=== PATIENT | female | born 1935 | race Caucasian/White ===

== ENCOUNTER 2019-02-20 12:26 | Inpatient (IN) | payer MEDICARE, BC ==
[2019-02-20] MEDS ORDERED: Zofran 4 MG/2 ML VIAL IV PRN ×2 (13:22→17:29)
[2019-02-20] MEDS ORDERED: MORPHINE SULFATE 2 MG INJ IV PRN ×2 (13:23→17:28)
[2019-02-20] MEDS ORDERED: Sodium Chloride 0.9% 1000 ML 1,000 ML IV SCH (13:30)
[2019-02-20] MEDS ORDERED: Lactated Ringers 1,000 ML IV ONE ×2 (13:47→13:56)
[2019-02-20] MEDS ORDERED: Sensorcaine 0.25% 10 ML ONE (13:56)
[2019-02-20] MEDS ORDERED: MEFOXIN 2 GM PREMIX** 2 GM/50 ML ML IV SCH (14:00)
[2019-02-20] MEDS: Zosyn 3.375GM/100 Ml D5W 3.375 GM/100 ML IVPB IV SCH ×2 (14:07→22:40)
[2019-02-20] MEDS ORDERED: Zemuron 100 MG/10 ML ONE (14:11)
[2019-02-20] MEDS ORDERED: DIPRIVAN 200 MG/20 ML IV ONE (14:11)
[2019-02-20] MEDS ORDERED: SUBLIMAZE 100 MCG/2 ML ONE ×2 (14:11→16:33)
[2019-02-20] MEDS ORDERED: Quelicin Fliptop 200 MG/10 ML ONE (14:11)
[2019-02-20] MEDS ORDERED: Lactated Ringers 1,000 ML IV SCH (14:30)
[2019-02-20] MEDS ORDERED: TORAdol 30 mg Injection ONE (15:52)
[2019-02-20] MEDS ORDERED: BRIDION 200MG/2ML IV ONE (15:52)
[2019-02-20] MEDS ORDERED: Zofran 4 MG/2 ML VIAL ONE (15:52)
[2019-02-20] MEDS ORDERED: Decadron 4 MG INJ ONE (15:52)
[2019-02-20] MEDS ORDERED: APRESOLINE 20 MG/ML INJ ONE (16:16)
--- NOTE | 2019-02-20 16:37 | CONS ---
CONSULT DATE: 02/20/[address] Florence's call day. HISTORY OF PRESENT ILLNESS: Patient is an 83 y/o female who has had a colonoscopy in the past 2-3 years. Didn't have any polyps at that time. She has had right lower quadrant pain since Saturday. She was sent in. they said she had acute appendicitis. That information was relayed to our office. It was felt she needed appendectomy given her persistent pain and CT findings. They didn't mention at the time, she also has some sort of cystic area/enhanced prabhakar in the left upper quadrant unsure of whether there is infection or not vs malignancy or other etiology. Lovilia would benefit from other work-up down the road. PAST MEDICAL HISTORY: Has had vitamin D deficiency. She has some neuropathy and osteoporosis in the past. Includes hypertension and arthritis as well. Has had some chronic cough in the past. PAST SURGICAL HISTORY: She has had tonsillectomy in the past, left breast lumpectomy. She denied any prior abdominal surgery. HOME MEDICATIONS: Alprazolam, calcium, Flarex eye drops, fluticasone, loratadine, probiotic, vitamin C, vitamin D3. FAMILY HISTORY: Negative for malignancy with regards to this. SOCIAL HISTORY: No smoking. No alcohol abuse. REVIEW OF SYSTEMS: Has had some chronic cough in the past Review of System hager, otherwise no chest pain or palpitations. Other systems negative or noncontributory other than above and per preadmission questionnaire. 14 systems reviewed pertinent for as noted above. PHYSICAL EXAMINATION: GENERAL: No acute distress. HEENT: Sclerae nonicteric. NECK: No JVD. CHEST: Equal excursion. Nonlabored breathing. CVS: Regular rate and rhythm. ABDOMEN: Soft. Some tenderness in the right lower quadrant with a little bit of guarding and just slight fullness in right lower quadrant, but she is nontender there. EXTREMITIES: No edema. NEURO: Alert, moving extremities grossly symmetrically. IMPRESSION: ACUTE RIGHT LOWER QUADRANT PAIN. CT SUSPICIOUS OF ACUTE APPENDICITIS. THIS IS WHERE SHE IS HAVING HER SYMPTOMS. Feel she would benefit from diagnostic laparoscopy, laparoscopy appendectomy, possible open. She additionally has this question of cystic area in the left upper quadrant. She is not having symptoms in this area. Whether this is related to a diverticulitis, a colitis, localized perforation, or some other unusual malignancy is unclear. Likely, she will need other work-up in the future probably starting with a colonoscopy for further evaluation, but as she is definitely having right lower quadrant pain over her abnormal appendix, there is a concern for the risk of perforating appendicitis. Over time feel more better to give additional procedures is less than the risk of worsening infection. Therefore, will proceed with diagnostic laparoscopy, laparoscopy appendectomy, possible open. Will look up at the left upper quadrant to see if there are any signs of malignancy to biopsy, but do not feel she warrants any open procedure with regards to that at this point. She and the family understand. Understand that she will likely need some other work-up, but need to get the appendix out of there at this time. Thank you for the consult.
[2019-02-20] MEDS ORDERED: NORCO 5/325 MG PO PRN (17:28)
[2019-02-20] MEDS: D5W/0.45NS W/ 20mEq KCl 1000 ML 1,000 ML IV SCH (18:03)
[2019-02-20] MEDS: XANAX 1 MG PO SCH (22:40)
[2019-02-21] MEDS: Zosyn 3.375GM/100 Ml D5W 3.375 GM/100 ML IVPB IV SCH ×5 (01:14→22:49)
[2019-02-21 06:22] LABS: Hematocrit 35.7 % (35-47); Hemoglobin 11.3 gm/dl (12.0-16.0); Mean Cell Volume 93.9 fl (78-100); Mean Corpuscular Hemoglobin 29.7 pg (26-32); Mean Corpuscular Hgb Concent. 31.7 g/dl (32-36); Mean Platelet Volume 10.9 fl (6-9.5); Platelet Count 247 K/mm3 (150-450); Red Cell Distribution Width 14.1 % (11.5-14.0); White Blood Count 18.1 K/mm3 (4.0-10.5)
[2019-02-21 06:46] LABS: ANION GAP 8.7 MEQ/L (5-15); BLOOD UREA NITROGEN 15 mg/dL (7-17); CHLORIDE 108 mmol/L (98-107); Calcium 8.8 mg/dL (8.4-10.2); Carbon Dioxide 24 mmol/L (22-30); Creatinine 1 0.67 mg/dL (0.52-1.04); Glucose 136 mg/dL (74-106); Potassium 4.2 mmol/L (3.5-5.1); SODIUM 137 mmol/L (137-145)
[2019-02-21] MEDS: CLARITIN 10 MG PO SCH (09:23)
[2019-02-21] MEDS: Flonase NASAL NS SCH (09:23)
[2019-02-21] MEDS: PRED-FORTE 1% OPHTHALMIC OP SCH (09:24)
[2019-02-21] MEDS: ENOXAPARIN SODIUM SQ SCH (09:24)
[2019-02-21] MEDS ORDERED: [UNRECOGNIZED DRUG - REMARK] NS SCH (10:00)
[2019-02-21] MEDS: TYLENOL 325 MG PO PRN (13:32)
--- NOTE | 2019-02-21 15:07 | PCM.HP ---
History of Present Illness - Chief Complaint Chief Complaint: Acute Appendicitis, Left Upper Quad Mass/Cyst History of Present Illness: is a 83 year old female seen this am following direct admission from the office for acute appendicitis. Patient presented to the clinic with a 1 -2 day hx of abdominal pain, fever and nausea. Patient was initially evaluated in clinic and was sent for a stat CT scan. On CT scan patient was noted to have an acute appendicitis and L sided upper quadrant mass or necrosis of unknown etiology. Patient was made NPO and went directly to surgery. Please refer to surgeon's procedure note for details. Patient reports that she is doing well this am. She reports she has some mild abdominal pain at incision site. Patient reports she had no appetite yesterday but would like to eat this am. No other reported concerns. - Review of Systems Constitutional: Fever (on wed evening but has since resolved) Eyes: No Vision Changes, No Double Vision Respiratory: No Cough, No Short Of Breath Cardiac: No Chest Pain, No Edema Abdominal/Gastrointestinal: Nausea, Diarrhea, No Vomiting, No Constipation ( Mild diarrhea on sat) Genitourinary Symptoms: No Dysuria Musculoskeletal: No Symptoms Neurological: No Symptoms Hematologic/Lymphatic: No Anemia Medications & Allergies Home Medications: Home Medication List Alprazolam 1 mg [Xanax 1 mg] 1 mg PO HS 02/20/19 [History Confirmed ] Amoxicillin 500 mg Cap [Amoxil 500 mg] 500 mg PO BID 02/20/19 [History Confirmed 02/20/19] Fluticasone Propionate [24 Hour Allergy] 1 spray NS DAILY 02/20/19 [History Confirmed 02/20/19] Loratadine 10 mg [Claritin 10 mg] 10 mg PO DAILY 02/20/19 [History Confirmed 02/20/19] Prednisolone Acetate OPHTH [Pred-Forte 1% Ophthalmic] 1 drop OP DAILY 12/03 [History Confirmed 02/20/19] Allergies/Adverse Reactions: Allergies Allergy/AdvReac Type Severity Reaction Status Date / Time No Known Drug Allergies Allergy Unverified 02/20/19 14:25 - Past Medical History Past Medical History: No Neurological History: No Pertinent History ENT History: No Pertinent History Cardiac History: No Pertinent History Respiratory History: No Pertinent History Endocrine Medical History: No Pertinent History Musculoskelatal History: No Pertinent History GI Medical History: No Pertinent History History: No Pertinent History Pyscho-Social History: No Pertinent History Reproductive Disorders: No Pertinent History - Female History Are you now?: No - Past Surgical History Past Surgical History: Yes Cardiac History: No Pertinent History Respiratory Surgery: No Pertinent History GI Surgical History: No Pertinent History Genitourinary Surgical Hx: No Pertinent History Musculskeletal Surgical Hx: No Pertinent History Female Surgical History: No Pertinent History Other Surgical History: cataracts removed bilateral eyes, cornea transplan bilateral eyes. right lumpectomy to right breast - Social History Smoking Status: Never smoker Alcohol: None Drug Use: none - Physical Exam Vital Signs: Vital Signs - 24 hr Temp Pulse Resp BP Pulse Ox 02/21/19 13:00 98.1 F 68 20 157/70 96 02/21/19 08:50 93 L 02/21/19 08:44 98.1 F 66 20 125/60 97 02/21/19 07:47 18 02/21/19 05:00 97.7 F 65 18 164/69 94 L 02/21/19 00:00 98.6 F 73 18 143/67 94 L 02/20/19 20:35 96 02/20/19 19:30 98.1 F 80 19 140/70 95 02/20/19 18:32 89 16 165/71 96 02/20/19 18:30 98.3 F 85 18 143/62 94 L 02/20/19 17:30 84 16 153/67 95 02/20/19 17:15 86 16 155/66 95 02/20/19 17:00 97.8 F 16 L 16 138/66 88 L Oxygen-Last 24 hours O2 Percentage 2 Liters = 28% O2 Percentage 2 Liters = 28% O2 Percentage 2 Liters = 28% O2 Percentage 2 Liters = 28% O2 Percentage 2 Liters = 28% O2 Percentage 2 Liters = 28% O2 Percentage 2 Liters = 28% General Appearance: no apparent distress, other (Patient looks mildly ill) Neurologic Exam: alert, oriented x 3, cooperative, normal mood/affect Eye Exam: eyes nml inspection Ears, Nose, Throat Exam: moist mucous membranes Neck Exam: normal inspection Respiratory Exam: normal breath sounds, lungs clear Cardiovascular Exam: regular rate/rhythm Gastrointestinal/Abdomen Exam: soft, normal bowel sounds, tenderness (Incision site had mild tenderness with palpation. NOBLE drain present with 5 ml of serous blood tinged drainage. Dressing clean dry and intact) Extremity Exam: normal inspection Skin Exam: warm, dry Wound Assessment: Skin/Wound Assessment Wound/Incision Assessment Start: 02/20/19 12: 50 Text: Status: Active Freq: Q6H Protocol: Document 02/21/19 12:00 CATHLEEN (Rec: 02/21/19 12:09 CATHLEEN [id number]) Wound/Incision Assessment Anterior Abdomen Wound Assessment Shift Assessment Wound Type Puncture Wound Stage Non Pressure Wound Dressing Status Changed Drainage Amount Moderate Drainage Description Serosanguineous Drainage Odor None/Absent General Appearance Well Approximated Asymptomatic Surrounding Tissue [place] Primary Dressing Drain sponges Comment 3 laproscopic incisions and NOBLE site. Small amount of drainage noted on NOBLE dressing, drainage circled. Laproscopic incisions appear to have skin glue, all CDI. Results - Labs Lab/Micro Results: Lab Results-Last 24 Hours 02/21/19 02/21/19 Range/Units 06:00 06:00 WBC 18.1 H (4.0-10.5) K/mm3 RBC 3.80 L (4.1-5.4) M/mm3 Hgb 11.3 L (12.0-16.0) gm/dl Hct 35.7 (35-47) % MCV 93.9 (78-100) fl MCH 29.7 (26-32) pg MCHC 31.7 L (32-36) g/dl RDW 14.1 H (11.5-14.0) % Plt Count 247 (150-450) K/mm3 MPV 10.9 H (6-9.5) fl Sodium 137 (137-145) mmol/L Potassium 4.2 (3.5-5.1) mmol/L Chloride 108 H (98-107) mmol/L Carbon Dioxide 24 (22-30) mmol/L Anion Gap 8.7 (5-15) MEQ/L BUN 15 (7-17) mg/dL Creatinine 0.67 (0.52-1.04) mg/dL Estimated GFR > 60.0 ML/MIN Glucose 136 H (74-106) mg/dL Calcium 8.8 (8.4-10.2) mg/dL - Other Procedures and Tests Respiratory Therapy 02/20/19 21:26 Oxygen NASAL CANNULA 2 lpm Assessment/Plan (1) Acute appendicitis Current Visit: Yes Status: Acute Assessment & Plan: Patient is s/p day one appendectomy. She is tolerating PO intake. She is afebrile. Patient did have leukocytosis. She has mild abdominal pain at incision site with minimal drainage in NOBLE drain. Will follow up on Surgery recs for discharge plan. Code(s): K35.80 - UNSPECIFIED ACUTE APPENDICITIS (2) Hypertension Current Visit: Yes Status: Acute Assessment & Plan: Patient had some elevated BPs. Could be related to pain. Will continue to monitor and elevated bp persists will need to start patient on HTN medication. Code(s): I10 - ESSENTIAL (PRIMARY) HYPERTENSION
[2019-02-21] MEDS: D5W/0.45NS W/ 20mEq KCl 1000 ML 1,000 ML IV SCH ×2 (16:56→16:57)
[2019-02-21] MEDS: XANAX 1 MG PO SCH (22:49)
[2019-02-22 06:09] LABS: BASOPHIL % 0.2 % (0.0-0.4); Basophil (Absolute #) 0.03 (0-0.4); Eosinophil % 3.8 % (0.00-5.0); Eosinophil (Absolute #) 0.47 (0-0.5); Granulocyte Absolute (ANC) 9.07 (1.4-6.9); Granulocytes % 73.3 % (36.0-66.0); Hematocrit 35.2 % (35-47); Hemoglobin 10.9 gm/dl (12.0-16.0); Lymphocyte (Absolute #) 1.84 (1.0-4.6); Lymphocytes % 14.9 % (24.0-44.0); Mean Cell Volume 94.6 fl (78-100); Mean Corpuscular Hemoglobin 29.3 pg (26-32); Mean Platelet Volume 11.2 fl (6-9.5); Monocyte (Absolute #) 0.96 (0.0-1.3); Monocytes % 7.8 % (0.0-12.0); Platelet Count 280 K/mm3 (150-450); Red Blood Count 3.72 M/mm3 (4.1-5.4); Red Cell Distribution Width 14.3 % (11.5-14.0); White Blood Count 12.4 K/mm3 (4.0-10.5)
[2019-02-22] MEDS: Zosyn 3.375GM/100 Ml D5W 3.375 GM/100 ML IVPB IV SCH ×3 (07:26→14:26)
[2019-02-22] MEDS: TYLENOL 325 MG PO PRN ×2 (07:26→11:59)
[2019-02-22] MEDS: D5W/0.45NS W/ 20mEq KCl 1000 ML 1,000 ML IV SCH (07:27)
[2019-02-22] MEDS: Flonase NASAL NS SCH (09:34)
[2019-02-22] MEDS: PRED-FORTE 1% OPHTHALMIC OP SCH (09:37)
[2019-02-22] MEDS: ENOXAPARIN SODIUM SQ SCH (09:37)
[2019-02-22] MEDS: CLARITIN 10 MG PO SCH (09:37)
[2019-02-22 12:38] VITALS: PULSE 75; O2SAT 92
[2019-02-22 15:24] LABS: Hematocrit 34.8 % (35-47); Hemoglobin 10.8 gm/dl (12.0-16.0); Mean Cell Volume 94.6 fl (78-100); Mean Corpuscular Hemoglobin 29.3 pg (26-32); Platelet Count 292 K/mm3 (150-450); Red Blood Count 3.68 M/mm3 (4.1-5.4); Red Cell Distribution Width 14.1 % (11.5-14.0); White Blood Count 11.2 K/mm3 (4.0-10.5)
--- NOTE | 2019-02-22 15:52 | PCM.DS ---
Discharge Summary Date of Admission: 02/20/19 12:34 Date of Discharge: 02/22/2019 Admitting Physician: FRANTZ SPENCER Consults: Consults on Case 02/20/19 12:34 Consult Surgery ROUTINE Primary Care Provider: HEVER CRUZ Allergies Allergies No Known Drug Allergies Allergy (Unverified 02/20/19 14:25) Hospital Summary - Hospital Course Hospital Course: is a 83 year old female that was a direct admission from the office for acute appendicitis. Patient presented to the clinic with a 1-2 day hx of abdominal pain, fever and nausea. Patient was initially evaluated in clinic and was sent for a stat CT scan. On CT scan patient was noted to have an acute appendicitis and L sided upper quadrant mass or necrosis of unknown etiology. Patient was made NPO and went directly to surgery. Please refer to surgeon's procedure note for details. Patient tolerated procedure well. She advanced to a regular diet. Patient's WBC has been trending down. She has been afebrile and has had stable VS. Patient would like to go home. She was evaluated by surgery who recommended two doses of Zosyn repeat CBC and that patient's NOBLE drain could be removed. - Vitals & Intake/Output Vital Signs: Vital Signs Temperature 98.6 F 02/22/19 12:37 Pulse Rate 75 02/22/19 12:37 Respiratory Rate 18 02/22/19 13:00 Blood Pressure 186/79 02/22/19 12:37 O2 Sat by Pulse Oximetry 92 L 02/22/19 12:37 Oxygen-Last Documented O2 Percentage 2 Liters = 28% Intake & Output: Intake & Output 02/20/19 02/21/19 02/22/19 02/23/19 11:59 11:59 11:59 11:59 Intake Total 1774 1752 Output Total 1660 550 Balance 114 1202 Weight 65.3 kg 65.2 kg - Lab Result Diagrams: 02/22/19 15:05 02/21/19 06:00 Lab Results-Last 24 Hrs: Lab Results-Last 24 Hours 02/22/19 02/22/19 Range/Units 05:00 15:05 WBC 12.4 H 11.2 H (4.0-10.5) K/mm3 RBC 3.72 L 3.68 L (4.1-5.4) M/mm3 Hgb 10.9 L 10.8 L (12.0-16.0) gm/dl Hct 35.2 34.8 L (35-47) % MCV 94.6 94.6 (78-100) fl MCH 29.3 29.3 (26-32) pg MCHC 31.0 L 31.0 L (32-36) g/dl RDW 14.3 H 14.1 H (11.5-14.0) % Plt Count 280 292 (150-450) K/mm3 MPV 11.2 H 11.0 H (6-9.5) fl Gran % 73.3 H (36.0-66.0) % Eos # (Auto) 0.47 (0-0.5) Absolute Lymphs (auto) 1.84 (1.0-4.6) Absolute Monos (auto) 0.96 (0.0-1.3) Lymphocytes % 14.9 L (24.0-44.0) % Monocytes % 7.8 (0.0-12.0) % Eosinophils % 3.8 (0.00-5.0) % Basophils % 0.2 (0.0-0.4) % Absolute Granulocytes 9.07 H (1.4-6.9) Basophils # 0.03 (0-0.4) Micro Results-Entire Visit: Microbiology 02/20/19 15:51 Abscess Culture - Final Abdominal Aspirate Escherichia Coli - Procedures and Test Procedures and Tests throughout Hospitalization: Therapy Orders & Screens 02/20/19 21:26 Oxygen NASAL CANNULA 2 lpm Comment: Diagnosis: Acute Appendicitis, Left Upper Quad Mass/Cyst Discharge Exam General Appearance: no apparent distress Neurologic Exam: alert, oriented x 3, cooperative, normal mood/affect Eye Exam: eyes nml inspection Neck Exam: normal inspection Respiratory Exam: normal breath sounds, lungs clear Cardiovascular Exam: regular rate/rhythm, normal heart sounds Gastrointestinal/Abdomen Exam: soft, normal bowel sounds (Dressing clean dry intact. Minimal serous drainage in NOBLE drain. Steri strips intact. Mild tenderness with palpation. No rebounding or guarding.), No distention, No guarding, No rebound Extremity Exam: normal inspection, No pedal edema Skin Exam: normal color, warm, dry Wound Assessment: Skin/Wound Assessment Wound/Incision Assessment Start: 02/20/19 12: 50 Text: Status: Active Freq: Q6H Protocol: Document 02/22/19 12:00 CL (Rec: 02/22/19 15:32 CL [id number]) Wound/Incision Assessment Anterior Abdomen Wound Assessment Shift Assessment Wound Type Puncture Wound Stage Non Pressure Wound Dressing Status Changed Drainage Amount Minimal Drainage Description Serosanguineous Drainage Odor None/Absent General Appearance Well Approximated Surrounding Tissue [place] Primary Dressing Drain sponges Comment 3 laproscopic incisions and NOBLE site. Wound Photo Photo Taken No Final Diagnosis/Problem List - Final Discharge Diagnosis/Problem (1) Acute appendicitis Current Visit: Yes Status: Acute Assessment & Plan: Patient is s/p day 2 laproscopic appy. Patient is doing well. Discussed with Surgery and patient is cleared to go home and follow up with Dr Arzate. Patient will also need to make an appt to have scopes done to further evaluate an abnormal CT finding Code(s): K35.80 - UNSPECIFIED ACUTE APPENDICITIS (2) Hypertension Current Visit: Yes Status: Acute Assessment & Plan: This appears to be a new finding. Would like to have patient evaluated as outpatient for HTN and started on medications if still hypertensive. Code(s): I10 - ESSENTIAL (PRIMARY) HYPERTENSION - Discharge Disposition: Home, Self-Care Condition: Stable Prescriptions: New Amoxicillin/Potassium Clav [Augmentin 875-125 Tablet] 875 mg PO BID #10 tablet Hydrocodone/APAP 5-325 Tab^^^ [[place] 5-325 Tablet^^^] 1 each PO Q6H PRN #18 tablet MDD 6 PRN Reason: Pain Continue Prednisolone Acetate OPHTH [Pred-Forte 1% Ophthalmic] 1 drop OP DAILY Amoxicillin 500 mg Cap [Amoxil 500 mg] 500 mg PO BID Alprazolam 1 mg [Xanax 1 mg] 1 mg PO HS Loratadine 10 mg [Claritin 10 mg] 10 mg PO DAILY Fluticasone Propionate [24 Hour Allergy] 1 spray NS DAILY Instructions: [place]-Pers[place] Drain, Appendicitis, Adult (DC) Additional Instructions: Patient needs to call Dr Paz office to get scheduled for scopes Follow up with: RICA GALVAN [COURTESY STAFF] - 1 Week HEVER CRUZ [Primary Care Provider] - 1 Week
[2019-02-22 15:59] VITALS: BP 195/81
[2019-02-23 06:41] LABS: CA 125 50.7 U/mL (0.0-35.0)
[2019-02-23 06:42] LABS: CARCINOEMBRYONIC ANTIGEN 3.5 ng/mL (0.0-3.1)
--- NOTE | 2019-02-23 09:33 | OP ---
SURGERY DATE: 02/20/19 SURGERY TIME: 1501 PREOPERATIVE DIAGNOSIS: 1. ACUTE APPENDICITIS BY CT SCAN. 2. CYSTIC MASS BETWEEN THE PANCREAS AND THE STOMACH OF UNCLEAR ETIOLOGY. POSTOPERATIVE DIAGNOSIS: 1. ACUTE PERFORATED APPENDICITIS WITH ABSCESS LOWER ABDOMEN UNRELATED TO RETROGASTRIC CYSTIC MASS. PROCEDURE: 1. DIAGNOSTIC LAPAROSCOPY, LAPAROSCOPIC APPENDECTOMY WITH DRAINAGE OF ABSCESS AND PERFORATED APPENDIX. SURGEON: Dr. Davis Banks. ANESTHESIA: General. ESTIMATED BLOOD LOSS: Minimal. INDICATIONS: As noted above. Risks and benefits explained in detail, but not limited to. Including the fact that we would likely work-up this cystic mass on elective basis, but we need to remove the infected appendix. Consent had been obtained. DESCRIPTION OF PROCEDURE AND FINDINGS: The patient was taken to the OR. General anesthesia was induced. The abdomen prepped and draped in the usual sterile fashion. After official time-out, continued with planned procedure. Transverse incision made in supraumbilical area. Fascia grasped and pulled up. Veress needle inserted. Tested with saline. Pneumoperitoneum accomplished insufflating to an open pressure of 0-15. An 11 bladeless port and camera were inserted without difficulty followed by lower midline 5 mm port and an additional lower midline 5 mm port placed and 12 mm right mid abdomen port placed. The patient had fabrice purulence and abscess in her right lower quadrant and very thickened, dilated appendix. [place] she had at least some microperforation with abscess. It was felt she warranted appendectomy. This required placing an additional 5 mm port in the lower abdomen as she had quite the small bowel ileus with fluid-filled dilated loops of small bowel with no evidence of any point of obstruction. It was felt this was an ileus from her perforated appendicitis. It was felt she warranted appendectomy. An additional port was used with a gentle grasper holding the small bowel loop out of the way so that the appendiceal area could be visualized. The lateral peritoneal reflection was incised with the ligature device allowing the cecum and appendix to be mobilized upward. Again, the base was very thickened and required slow, careful dissection of the mesoappendix with the aid of the ligature device staying along the appendiceal border elevating it well away from the retroperitoneum up to the edge of the cecum. Again, whether there was a large stool ball fecalith in this area or some other mass, it was felt the appendix warranted taking it right on the cecum. This took quite some time mobilizing this, but once cleared, it was grasped with the [place] bowel grasper allowing the blue load in the stapler to be fired across the base. Sequential reload and the mesoappendix was fired with the bañuelos reload across the residual mesoappendix. Staple line appeared to be intact. No signs of any active bleeding or leakage. Again, avoided where it appeared that the ileum was entering the bowel, had avoided this area. Otherwise, the appendix appeared to at least have microperforation. It was placed in the Pleatman's sac, pulled free, and passed off. Fascial defect 12 mm was closed with the puncture closure device under direct vision of the camera and #1 Vicryl. Port was replaced. A copious amount of irrigation accomplished in the right lower quadrant down to the pelvis area irrigating clear, irrigating the infection from the inner bowel loops that had been plastered down in this area. It was felt she would benefit from NOBLE drain placed in this right lower quadrant out through the inferior 5 mm port site. Placed to bulb suction. Staple lines intact. No signs of any active bleeding or leakage. At this point, the patient was flattened so we could have better visualization of the upper abdomen. The liver appeared to be smooth. There was no gross evidence of any metastatic nodules on the surface. There were no signs of any peritoneal implants anywhere on the upper omentum or the fatty tissue between the stomach and the liver. The area where the cystic mass had been could be seen bulging in this area. However, there was no gross evidence of any tumor nodules outside this. It was felt given her perforated appendicitis that it did not warrant entering this cavity at this point. It was felt she needed an elective work-up and treatment of this cystic mass between the stomach and the tail of the pancreas. There was no superficial nodules to biopsy at this time. Right lower quadrant reinspected. Good hemostasis noted. No signs of any active bleeding. The drain was in good position. At this point, pneumoperitoneum decompressed. Wounds irrigated out. Skin incisions closed with 4-0 Vicryl. Steri-strips and sterile dressing applied. 0.25% Marcaine local had been injected previously. The patient was transferred to recovery in stable condition. There were no immediate complications. Findings discussed with the family out in the waiting area.
[2019-02-23 11:37] LABS: CA 19-9 <1.2 IU/mL (0.0-34.9)
== END 2019-02-22 16:40 | disposition home or self-care (01) | DRG 340 ==
LOC: MED SURG 12:34 → OBSVTOIN 12:34
PROVIDERS: ADMIT Family Medicine; ATTEND Internal Medicine
PROC: 0DTJ4ZZ Resection of Appendix, Percutaneous Endoscopic Approach (ICD-10-PCS; principal; 2019-02-20)
DX: K35.33 Acute appendicitis with perforation, localized peritonitis, and gangrene, with abscess (principal); R19.02 Left upper quadrant abdominal swelling, mass and lump; I10 Essential (primary) hypertension; Z79.899 Other long term (current) drug therapy
CPT/HCPCS: 36415; 74177; 80048; 81001; 82378; 85025; 85027; 86301; 86304; 87070; 87077; 87086; 87186; 94760; 99100; 99140; J0330; J0360; J0694; J1100; J1650; J1885; J2270; J2405; J2543; J2704; J3010; A9270-GY

== ENCOUNTER 2019-03-02 08:49 | Day surgery (SDC) | payer MEDICARE, BC ==
--- NOTE | 2019-03-02 08:40 | HP ---
DATE OF SURGERY: 03/02/2019 HISTORY OF PRESENT ILLNESS: This is an 83 year-old female in the hospital had acute appendicitis and left sided upper quadrant cystic mass of unclear etiology. Tumor markers were ordered. It was felt she needed EGD and colonoscopy for evaluation. PAST MEDICAL HISTORY: Hypertension. Osteoporosis. She had some polyps in the past. PAST SURGICAL HISTORY: Tonsillectomy. Left breast lumpectomy. Laparoscopy for perforated appendicitis recently. MEDICATIONS: Alprazolam, calcium, Pred-Forte eye drops, fluticasone, loratadine, probiotic, vitamin C, vitamin D3. She had been on Augmentin recently. ALLERGIES: NKDA. FAMILY HISTORY: Negative in regards to this problem. SOCIAL HISTORY: No smoking or alcohol abuse. REVIEW OF SYSTEMS: Fourteen systems reviewed per admission assessment. No chest pain or palpitations, no upper abdominal pain. She denied any prior history of pancreatitis, other systems negative or noncontributory as above and per preadmission questionnaire. PHYSICAL EXAMINATION: GENERAL: No acute distress. HEENT: Sclerae nonicteric. NECK: No JVD. CHEST: Equal excursion, nonlabored breathing. CVS: Regular rate and rhythm. ABDOMEN: Soft. No peritoneal signs. EXTREMITIES: No significant edema. NEURO: Alert, moving extremities symmetrically. No gross motor deficits noted. RECTAL: Deferred timed to endoscopy exam. IMPRESSION: History of epigastric symptoms and mass unclear etiology. I feel the patient will benefit from upper and lower endoscopy to evaluate upper or lower GI source. Risks and benefits explained in detail including but not limited to bleeding or infection, risk of bowel injury or perforation possibly requiring open procedure, risk of missed or nondiagnosis or incomplete exam possibly requiring barium swallow, other studies or procedures, general risk of anesthesia or sedation, risk of bowel prep but not limited to. She understands and agrees to the planned procedure and will proceed with EGD and colonoscopy as an outpatient.
[~2019-03-02 08:49] MED LIST: Lactated Ringers 1,000 ML IV SCH
[2019-03-02] MEDS ORDERED: DIPRIVAN 200 MG/20 ML IV ONE ×2 (10:36→10:53)
[2019-03-02 12:11] VITALS: O2SAT 96
[2019-03-02 12:28] VITALS: BP 159/86; PULSE 88
--- NOTE | 2019-03-03 09:25 | OP ---
SURGERY DATE/TIME: 03/02/2019 1039 PREOPERATIVE DIAGNOSES: 1) History of recent appendicitis. 2) History of unrelated retrogastric mass, need for upper and lower endoscopy for further evaluation. POSTOPERATIVE DIAGNOSES: 1) Small gastric polyps. 2) Gastritis. 3) Hyperplasia proximal stomach. 4) Ascending colon mass. 5) Diverticulosis. 6) Small internal and external hemorrhoids. 7) Small raised lesion versus early polyp descending colon and rectum. PROCEDURES: 1) EGD with cold biopsy of the small bowel to evaluate for celiac sprue. 2) Cold biopsy of the antrum to evaluate for Helicobacter pylori. 3) Cold biopsy removal of small gastric polyp. 4) Cold biopsy of mucosa overlying the extra-luminal retrogastric mass to evaluate mucosal lining. 5) Cold biopsy of hyperplasia of the proximal stomach mucosa. 6) Cold biopsy distal esophagus. 7) Colonoscopy to cecum, hot snare biopsy removal of large piece of large cecal mass. 8) Hot biopsy small raised lesion descending colon and rectum. SURGEON: Dr. Davis Banks. ANESTHESIA: MAC. ESTIMATED BLOOD LOSS: Minimal. INDICATIONS: As noted above. Risks and benefits explained in detail and not limited to and consent obtained. DESCRIPTION OF PROCEDURE AND FINDINGS: The patient is taken to the operating room. MAC anesthesia introduced. After official time out and no disagreement with planned procedure, a bite block positioned. Video gastroscope easily passed down the esophagus through the patent pylorus to the junction of the second and third portion of the duodenum. Duodenum and duodenal bulb no gross masses. Cold biopsy taken to evaluate for celiac sprue. Cold biopsy taken of the antrum to evaluate for gastritis and for Helicobacter pylori. Cold biopsy taken of mucosa, this appeared fairly unremarkable overlying what seemed to be retrogastric mass pushing in on the stomach. Again, this did not appear to be through the mucosa but cold biopsies were taken of the mucosa overlying this area. Cold biopsy also taken and removal of small polyp in the proximal stomach as well as there are some patchy areas with some whitish hyperplastic appearing areas where cold biopsy taken for further evaluation. Cold biopsy is also taken in the distal esophagus. Good hemostasis noted. There were no signs of any obvious mass or mucosal lesions in the esophagus. The scope is withdrawn. Attention turned to colonoscopy. Digital rectal exam did not reveal any rectal masses. She did have some small internal and external hemorrhoids. Video colonoscope inserted and passed up the slightly tortuous sigmoid, descending, transverse and ascending colon. With external pressure, the scope was able to be passed around the ascending colon to the cecum. The valve and cecum were well visualized. There was a moderate sized cecal mass. It was too large in this thin walled cecum in this 83 year-old patient to warrant safe removal with the snare. Therefore a large piece of the edge removed with hot snare biopsy accomplished. Good hemostasis noted. Another hot biopsy is taken of the mass itself. Again this is in the cecum in the right lower quadrant confirmed by visualization of the valve. Otherwise the scope is slowly and carefully withdrawn. Prep overall was fair. There was a little bit of liquidy stool throughout the colon. The scope is slowly and carefully withdrawn over the next 9 to 10 minutes. Small raised lesion versus early polyp in the descending colon removed with hot biopsy forceps as well as in the rectum. She did have some diverticulosis, did have some internal and external hemorrhoids. There were no signs of any large polyps, masses or obstructing lesions other than the cecal mass as mentioned. The patient tolerated the procedure well. There were no immediate complications. There was nothing obvious to the transverse colon to account for obvious etiology of her retrogastric cystic mass. Findings discussed with the family out in the waiting area. I will see her back in the office next week to go over the path report and discuss options of surgical resection of her cecal mass as well as possibility of potential removing the retrogastric mass if possible.
== END 2019-03-02 12:35 | disposition home or self-care (01) ==
LOC: SDC 08:49
PROVIDERS: ATTEND Surgery
DX: K31.7 Polyp of stomach and duodenum (principal); K29.70 Gastritis, unspecified, without bleeding; K57.30 Diverticulosis of large intestine without perforation or abscess without bleeding; K64.4 Residual hemorrhoidal skin tags; K64.8 Other hemorrhoids; K63.5 Polyp of colon; D12.0 Benign neoplasm of cecum
CPT/HCPCS: 88305; 99100; J2704

== ENCOUNTER 2020-06-23 08:32 | Day surgery (SDC) | payer MEDICARE, BC ==
--- NOTE | 2020-06-20 13:19 | HP ---
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 In April underwent right hemicolectomy for ascending colon mass, appendiceal cancer this was done at . 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 Currently presents for follow up colonoscopy. PAST MEDICAL HISTORY: Appendiceal cancer. Neuropathy. Insomnia. Hypertension. PAST SURGICAL HISTORY: Right hemicolectomy. Tonsillectomy. ALLERGIES: NKDA. MEDICATIONS: Amlodipine, gabapentin, alprazolam, vitamins, Probiotic. FAMILY HISTORY: Multiple sclerosis. SOCIAL HISTORY: None. REVIEW OF SYSTEMS: CONSTITUTIONAL: Denies fever or chills. CHEST: Denies shortness of breath. CVS: Denies chest pain. ABDOMEN: Denies abdominal pain, nausea, vomiting, diarrhea, constipation or rectal bleeding. INTEGUMENTARY: Negative. PHYSICAL EXAMINATION: GENERAL: No acute distress. CHEST: Nonlabored. No shortness of breath. CVS: Regular rate and rhythm. ABDOMEN: Soft, nontender to palpation. EXTREMITIES: No edema. NEUROLOGIC: Alert. PSYCHIATRIC: Appropriate. IMPRESSION: History of appendiceal cancer and colon polyps. PLAN: Colonoscopy with Dr. Hermelindo Butts. As dictated by Kacey Diggs NP.
[2020-06-23] MEDS ORDERED: Lactated Ringers 1,000 ML IV SCH (09:00)
[2020-06-23] MEDS ORDERED: DIPRIVAN 200 MG/20 ML IV ONE (10:09)
[2020-06-23 11:18] VITALS: BP 163/70; PULSE 78; O2SAT 96
--- NOTE | 2020-06-23 11:56 | OP ---
SURGERY DATE/TIME: 06/23/2020 1009 PREOPERATIVE DIAGNOSIS: Follow up of colon cancer. POSTOPERATIVE DIAGNOSIS: Normal anastomosis, normal colon complete. PROCEDURE: Colonoscopy complete. SURGEON: Hermelindo Butts M.D. ANESTHESIA: MAC. COMPLICATIONS: None. CONDITION: Stable. INDICATION: A patient requiring evaluation. She had colon cancer removed a little over a year ago. It was in the appendiceal area. It was a fabrice colon cancer. She was taken for follow up. DESCRIPTION OF PROCEDURE: Left lateral decubitus position. Anal digital examination satisfactory. Scope introduced. Scope advanced to anastomosis in the mid upper abdomen. Ileocolic anastomosis normal. Blind end normal. Transverse colon normal. Splenic, descending, sigmoid, rectum, anus normal. Normal examination. PLAN: Follow up in one year.
== END 2020-06-23 11:32 | disposition home or self-care (01) ==
LOC: SDC 08:32
PROVIDERS: ATTEND Surgery
DX: Z08 Encounter for follow-up examination after completed treatment for malignant neoplasm (principal); Z85.038 Personal history of other malignant neoplasm of large intestine; I10 Essential (primary) hypertension; G62.9 Polyneuropathy, unspecified; Z79.899 Other long term (current) drug therapy; G47.00 Insomnia, unspecified
CPT/HCPCS: 99100; J2704

== ENCOUNTER 2021-07-03 14:00 | Inpatient (IN) | payer BC, MEDICARE ==
[2021-07-03 14:51] LABS: Hematocrit 43.6 % (35-47); Hemoglobin 13.8 gm/dl (12.0-16.0); Mean Cell Volume 92.8 fl (78-100); Mean Corpuscular Hemoglobin 29.4 pg (26-32); Mean Corpuscular Hgb Concent. 31.7 g/dl (32-36); Mean Platelet Volume 10.5 fl (7.5-11.0); Platelet Count 371 K/mm3 (150-450); Red Cell Distribution Width 13.7 % (11.5-14.0); White Blood Count 20.1 K/mm3 (4.0-10.5)
--- NOTE | 2021-07-03 15:03 | XRAY ---
Indication: Cough. Hypoxemia. Comparison: July 01, 2019. Portable chest again hyperinflated with new mid to lower lung hazy interstitial alveolar opacities and small effusions bilaterally. Heart not enlarged. Bony thorax intact again with osteopenia, degenerative changes, and scoliosis.
[2021-07-03 15:12] LABS: ALBUMIN 3.4 g/dL (3.5-5.0); ALKALINE PHOSPHATASE 129 U/L (38-126); ANION GAP 11.6 MEQ/L (5-15); BLOOD UREA NITROGEN 16 mg/dL (7-17); CHLORIDE 98 mmol/L (98-107); Calcium 9.9 mg/dL (8.4-10.2); Carbon Dioxide 32 mmol/L (22-30); Creatinine 1 0.59 mg/dL (0.52-1.04); EST GLOMERULAR FILTRATION RATE > 60.0 ML/MIN; Glucose 119 mg/dL (74-106); NT PRO BNP 839 pg/mL (0-1800); Potassium 3.5 mmol/L (3.5-5.1); SGOT/AST 27 U/L (14-36); SGPT/ALT 17 U/L (0-35); SODIUM 137 mmol/L (137-145); Total Protein 6.4 g/dL (6.3-8.2)
[2021-07-03 15:18] LABS: Appearance CLEAR (CLEAR); Bacteria RARE /HPF (NEGATIVE); Bilirubin NEGATIVE (NEGATIVE); Blood NEGATIVE Ery/ul (0-5); Glucose NEGATIVE (NEGATIVE); Ketones NEGATIVE (NEGATIVE); Leukocyte Esterase TRACE (NEGATIVE); Nitrite NEGATIVE (NEGATIVE); Protein,Urine Dip NEGATIVE (Negative); RBC 0-2 /HPF (0-2); Specific Gravity 1.003 (1.005-1.025); Urobilinogen NEGATIVE mg/dL (0-1); WBC 0-2 /HPF (0-5)
[2021-07-03 15:25] LABS: INFLUENZA A NEGATIVE (NEGATIVE); INFLUENZA B NEGATIVE (NEGATIVE); RESPIRATORY SYNCTIAL VIRUS NEGATIVE (Negative); SARS-CoV-2 Xpert Express NEGATIVE (NEGATIVE)
[2021-07-03] MEDS ORDERED: ROCEPHIN 2 Gm-D5w 50ML BAG** 2 G/50 ML IVPB IV STA (15:47)
[2021-07-03] MEDS ORDERED: Zithromax 500 MG/ 250 ML NaCl Premix 500 MG/250 ML IVPB IV STA (15:47)
--- NOTE | 2021-07-03 15:50 | ERPHSYRPT ---
- History of Present Illness Time Seen by Provider: 07/03/21 14:10 Source: patient Exam Limitations: no limitations Patient Subjective Stated Complaint: "I have this cough and they said my oxygen is low." Triage Nursing Assessment: Patient reported a one week onset of cough without shortness of breath, chest pain, orthopenea, or exertional dyspnenea. She also denied N/V/D or abdominal pain. She was seen on 06/28/20 at [facility] and swabbed for Flu/COVID/RSV. She was prescribed tessalon perles and advised that her swabs were negative. She reported that is she is doing no better today. She was sent to the ED for hypoxemia at 88% on room air. She does not use home supplemental oxygen. Pupils 3mm bilateral. neck supple without JVD/bruit s/thrills. Symmetrical chest expansion. Heart tones S1/S2 RRR without extra sounds. Lungs vesicular with diminished air movement in th left lower lobe. Abdomen non-surgical, non-distended, and without peritoneal signs. bowel sounds present in all quadrants. She was dependent upon oxygen as she was 86% on room air after transfering to the bed. Physician History: Patient is a 89-year-old female [facility]. Patient had an O2 sat of 88%. Patient states that she has been experiencing a cough for approximately 1 week. No shortness of breath or chest pain. No nausea vomiting or diarrhea. Patient states that she was swabbed [facility] the [facility] but is not aware of the results. No fevers. Patient symptoms are mild to moderate in intensity. No specific worsening or improving factors. Patient voices no other complaints or concerns at this time. Timing/Duration: week(s) Severity: moderate Modifying Factors: Improves With: nothing Associated Symptoms: cough Allergies/Adverse Reactions: No Known Drug Allergies Allergy (Verified 07/03/21 14:13) Home Medications: ALPRAZolam 1 MG [Xanax 1 mg] 0.5 mg PO HS 02/20/19 [History] Fluticasone Propionate [24 Hour Allergy] 1 spray NS DAILY 02/20/19 [History] Prednisolone Acetate OPHTH [Pred-Forte 1% Ophthalmic] 1 drop OP DAILY 02/20/19 [History] Ascorbic Acid 500 mg [Vitamin C 500 MG] 500 mg PO DAILY 03/02/19 [History] Calcium Carbonate/Vitamin D3 [Calcium 500-Vit D3 600 Caplet] 2 each PO DAILY 0 03/02/19 [History] Cholecalciferol (Vitamin D3) [Vitamin D3] 1,000 unit PO DAILY 03/02/19 [History] Amlodipine Besylate 5 mg [Norvasc 5 mg] 5 mg PO DAILY 05/20/20 [History] Gabapentin 100 mg PO TID 05/20/20 [History] L.acidoph,Paracasei, B.lactis [Probiotic] 1 each PO DAILY 05/20/20 [History] Melatonin/Pyridoxine [Melatonin 5 mg Tablet] 5 mg PO HS 05/20/20 [History] Polymyxin B Sulf/Trimethoprim [Polymyxin B-Tmp Eye Drops] 10 ml OP BID 06/13/20 [History] Hx Tetanus, Diphtheria Vaccination/Date Given: No Hx Influenza Vaccination/Date Given: Yes Hx Pneumococcal Vaccination/Date Given: Yes Travel Risk - International Travel Have you traveled outside of the country in past 3 weeks: No - Coronavirus Screening Are you exhibiting any of the following symptoms?: Yes Symptoms: Cough: New Onset Close contact with a COVID-19 positive Pt in past 14-21 Days: No - Vaccine Status Have you recieved a Covid-19 vaccination: Yes Assembler Cards And Announcements: Moderna - Vaccination Dates Date of 2cond Vaccination (if applicable): 08/2020 - Review of Systems Constitutional: No Symptoms, No Fever, No Chills Eyes: No Symptoms Ears, Nose, & Throat: No Symptoms Respiratory: No Symptoms, No Cough, No Dyspnea Cardiac: No Symptoms, No Chest Pain, No Edema, No Syncope Abdominal/Gastrointestinal: No Symptoms, No Abdominal Pain, No Nausea, No Vomiting, No Diarrhea Genitourinary Symptoms: No Symptoms, No Dysuria Musculoskeletal: No Symptoms, No Back Pain, No Neck Pain Skin: No Symptoms, No Rash Neurological: No Symptoms, No Dizziness, No Focal Weakness, No Sensory Changes Psychological: No Symptoms Endocrine: No Symptoms Hematologic/Lymphatic: No Symptoms Immunological/Allergic: No Symptoms All Other Systems: Reviewed and Negative - Past Medical History Pertinent Past Medical History: Yes Neurological History: No Pertinent History ENT History: No Pertinent History Cardiac History: Hypertension Respiratory History: No Pertinent History Endocrine Medical History: No Pertinent History Musculoskeletal History: No Pertinent History GI Medical History: Other History: No Pertinent History Psycho-Social History: No Pertinent History Female Reproductive Disorders: No Pertinent History Other Medical History: 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 hx appendix cancer - Past Surgical History Past Surgical History: Yes Neuro Surgical History: No Pertinent History Cardiac: No Pertinent History Respiratory: No Pertinent History Gastrointestinal: Appendectomy Genitourinary: No Pertinent History Musculoskeletal: No Pertinent History Female Surgical History: No Pertinent History Other Surgical History: cataracts removed bilateral eyes, cornea transplant bilateral eyes. 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 - Social History Smoking Status: Never smoker Exposure to second hand smoke: No Drug Use: none Patient Lives Alone: No - Female History Hx Now: No - Nursing Vital Signs Nursing Vital Signs: Initial Vital Signs Temperature 98.1 F 07/03/21 14:00 Pulse Rate 95 H 07/03/21 14:00 Respiratory Rate 18 07/03/21 14:00 Blood Pressure 179/78 07/03/21 14:00 O2 Sat by Pulse Oximetry 86 L 07/03/21 14:00 Pain Scale Pain Intensity 0 - Physical Exam General Appearance: no apparent distress, alert Eye Exam: PERRL/EOMI, eyes nml inspection Ears, Nose, Throat Exam: normal ENT inspection, TMs normal, pharynx normal, moist mucous membranes Neck Exam: normal inspection, non-tender, supple, full range of motion Respiratory Exam: normal breath sounds, lungs clear, No respiratory distress Cardiovascular Exam: regular rate/rhythm, normal heart sounds, normal peripheral pulses Gastrointestinal/Abdomen Exam: soft, normal bowel sounds, No tenderness, No mass Back Exam: normal inspection, normal range of motion, No CVA tenderness, No vertebral tenderness Extremity Exam: normal inspection, normal range of motion, pelvis stable Neurologic Exam: alert, oriented x 3, cooperative, normal mood/affect, nml cereb ellar function, nml station & gait, sensation nml, No motor deficits Skin Exam: normal color, warm, dry, No rash Lymphatic Exam: No adenopathy SpO2: 94 O2 Delivery: Nasal Cannula (3 L nasal cannula) - Course Nursing assessment & vital signs reviewed: Yes EKG Interpreted by Me: RATE (94), Sinus Rhythm, NORMAL AXIS, NORMAL INTERVALS (Left ventricular hypertrophy) - Radiology Exams Chest X-ray Interpretation: Teleradiologist Report (Portable chest again hyperinflated with new mid to lower lung hazy nests interstitial alveolar opacity and small effusion bilaterally. Heart not enlarged. Bony thorax intact degenerative changes and scoliosis.) Ordered Tests: Active Orders 24 hr Category Date Time Status Bedrest ROUTINE Activity 07/03/21 15:59 Active Assistant Women'S Soccer Coach STAT Care 07/03/21 14:34 Active Code Status Order ROUTINE Care 07/03/21 16:01 Active EKG-ER Only STAT Care 07/03/21 14:33 Active IV Care Q6H Care 07/03/21 16:01 Active IV Insertion STAT Care 07/03/21 14:33 Active Oxygen-ED Only Nasal Cannula 3 lpm Care 07/03/21 14:[address] in Observation ROUTINE Care 07/03/21 16:01 Active Pulse Oximetry (ED) STAT Care 07/03/21 14:33 Active Garrick Hose, Apply ROUTINE Care 07/03/21 16:01 Active Weight,Daily 0600 Care 07/03/21 16:01 Active CHEST 1 VIEW (PORTABLE) Stat Exams 07/03/21 14:34 Completed BLOOD CULTURE Stat Lab 07/03/21 14:00 Received CBC AM.LAB Lab 07/04/21 04:00 Ordered CBC W DIFF Stat Lab 07/03/21 14:33 Completed CMP AM.LAB Lab 07/04/21 04:00 Ordered CMP Stat Lab 07/03/21 14:33 Completed Manual Differential NC Stat Lab 07/03/21 14:33 Completed NT PRO BNP Stat Lab 07/03/21 14:33 Completed TROPONIN Q3H Lab 07/03/21 14:45 Completed TROPONIN Q3H Lab 07/03/21 17:45 Ordered TROPONIN Q3H Lab 07/03/21 20:45 Ordered UA W/RFX UR CULTURE Stat Lab 07/03/21 14:33 Completed Pulse Oximetry CONTINUOUS RT 07/03/21 16:02 Active Medication Summary Generic Name Dose Route Start Last Admin Trade Name Freq PRN Reason Stop Dose Admin Ceftriaxone Sodium/Dextrose 2 g in 50 mls @ 100 mls/hr 07/03/21 15:47 07/03/21 15:58 Rocephin 2 Gm-D5w 50ml Bag IV 07/03/21 16:16 100 ml/hr STAT STA 100 mls/hr Administration Azithromycin 500 mg in 250 mls @ 250 mls/hr 07/03/21 15:47 Zithromax 500 Mg/ 250 Ml Nacl Premix IV 07/03/21 16:46 STAT STA Discontinued Medications Generic Name Dose Route Start Last Admin Trade Name Adali PRN Reason Stop Dose Admin Ceftriaxone Sodium/Dextrose Confirm 07/03/21 15:56 Rocephin 2 Gm-D5w 50ml Bag Administered 07/03/21 15:57 Dose 2 g in 50 mls @ ud IV .STK-MED ONE Lab/Rad Data: Laboratory Result Diagrams 07/03/21 14:33 07/03/21 14:33 Laboratory Results 07/03/21 07/03/21 07/03/21 Range/Units 14:47 14:45 14:33 WBC (4.0-10.5) K/mm3 RBC (4.1-5.4) M/mm3 Hgb (12.0-16.0) gm/dl Hct (35-47) % MCV (78-100) fl MCH (26-32) pg MCHC (32-36) g/dl RDW (11.5-14.0) % Plt Count (150-450) K/mm3 MPV (7.5-11.0) fl Sodium 137 (137-145) mmol/L Potassium 3.5 (3.5-5.1) mmol/L Chloride 98 (98-107) mmol/L Carbon Dioxide 32 H (22-30) mmol/L Anion Gap 11.6 (5-15) MEQ/L BUN 16 (7-17) mg/dL Creatinine 0.59 (0.52-1.04) mg/dL Estimated GFR > 60.0 ML/MIN Glucose 119 H (74-106) mg/dL Calcium 9.9 (8.4-10.2) mg/dL Total Bilirubin 0.80 (0.2-1.3) mg/dL AST 27 (14-36) U/L ALT 17 (0-35) U/L Alkaline Phosphatase 129 H (38-126) U/L Troponin I 0.016 (0.000-0.034) ng/mL NT-Pro-B Natriuret Pep 839 (0-1800) pg/mL Serum Total Protein 6.4 (6.3-8.2) g/dL Albumin 3.4 L (3.5-5.0) g/dL Urine Color (YELLOW) Urine Appearance (CLEAR) Urine pH (5-6) Ur Specific Boutte (1.005-1.025) Urine Protein (Negative) Urine Ketones (NEGATIVE) Urine Blood (0-5) Jelani/ul Urine Nitrite (NEGATIVE) Urine Bilirubin (NEGATIVE) Urine Urobilinogen (0-1) mg/dL Ur Leukocyte Esterase (NEGATIVE) Urine WBC (Auto) (0-5) /HPF Urine RBC (Auto) (0-2) /HPF U Epithel Cells (Auto) (FEW) /HPF Urine Bacteria (Auto) (NEGATIVE) /HPF Urine Culture Reflexed (NO) Urine Glucose (NEGATIVE) mg/dL Influenza Type A Ag NEGATIVE (NEGATIVE) Influenza Type B Ag NEGATIVE (NEGATIVE) RSV (PCR) NEGATIVE (Negative) SARS-CoV-2 (PCR) NEGATIVE (NEGATIVE) 07/03/21 07/03/21 Range/Units 14:33 14:33 WBC 20.1 H (4.0-10.5) K/mm3 RBC 4.70 (4.1-5.4) M/mm3 Hgb 13.8 (12.0-16.0) gm/dl Hct 43.6 (35-47) % MCV 92.8 (78-100) fl MCH 29.4 (26-32) pg MCHC 31.7 L (32-36) g/dl RDW 13.7 (11.5-14.0) % Plt Count 371 (150-450) K/mm3 MPV 10.5 (7.5-11.0) fl Sodium (137-145) mmol/L Potassium (3.5-5.1) mmol/L Chloride (98-107) mmol/L Carbon Dioxide (22-30) mmol/L Anion Gap (5-15) MEQ/L BUN (7-17) mg/dL Creatinine (0.52-1.04) mg/dL Estimated GFR ML/MIN Glucose (74-106) mg/dL Calcium (8.4-10.2) mg/dL Total Bilirubin (0.2-1.3) mg/dL AST (14-36) U/L ALT (0-35) U/L Alkaline Phosphatase (38-126) U/L Troponin I (0.000-0.034) ng/mL NT-Pro-B Natriuret Pep (0-1800) pg/mL Serum Total Protein (6.3-8.2) g/dL Albumin (3.5-5.0) g/dL Urine Color STRAW (YELLOW) Urine Appearance CLEAR (CLEAR) Urine pH 6.0 (5-6) Ur Specific Boutte 1.003 (1.005-1.025) Urine Protein NEGATIVE (Negative) Urine Ketones NEGATIVE (NEGATIVE) Urine Blood NEGATIVE (0-5) Jelani/ul Urine Nitrite NEGATIVE (NEGATIVE) Urine Bilirubin NEGATIVE (NEGATIVE) Urine Urobilinogen NEGATIVE (0-1) mg/dL Ur Leukocyte Esterase TRACE (NEGATIVE) Urine WBC (Auto) 0-2 (0-5) /HPF Urine RBC (Auto) 0-2 (0-2) /HPF U Epithel Cells (Auto) NONE (FEW) /HPF Urine Bacteria (Auto) RARE (NEGATIVE) /HPF Urine Culture Reflexed NO (NO) Urine Glucose NEGATIVE (NEGATIVE) mg/dL Influenza Type A Ag (NEGATIVE) Influenza Type B Ag (NEGATIVE) RSV (PCR) (Negative) SARS-CoV-2 (PCR) (NEGATIVE) - Progress Progress: improved Progress Note: Patient reassessed. She feels well on nasal cannula oxygen. COVID test negative. X-ray reveals bilateral pulmonary infiltrates with effusions. Patient has a leukocytosis of 20,000. Working diagnosis is pneumonia. Patient received 2 g of Rocephin and azithromycin. BNP negative. Case discussed with Dr. Guzmán who accepts admission to observation. Plan of care discussed with patient. She agrees to admission to [facility] for further evaluation and treatment. Patient voices no other complaints or concerns at this time. Portions of this note were created with voice recognition technology. There may be grammatical, spelling, punctuation or sound alike errors 07/03/21 16:03 Discussed with : Chantell Will see patient in: hospital (observation) Counseled pt/family regarding: lab results, diagnosis, rad results - Departure Departure Disposition: Observation Clinical Impression: Bilateral pneumonia, Hypoxia, Leukocytosis Condition: Stable Critical Care Time: No Referrals: FRANTZ SPENCER MD [Primary Care Provider] - Follow up/PCP as directed
[2021-07-03] MEDS ORDERED: ROCEPHIN 2 Gm-D5w 50ML BAG** 2 G/50 ML IVPB IV ONE (15:56)
[2021-07-03] MEDS ORDERED: Zithromax 500 MG/ 250 ML NaCl Premix 500 MG/250 ML IVPB IV ONE (16:29)
[2021-07-03] MEDS ORDERED: TYLENOL EXTRA STRENGTH 500 MG PO PRN (18:58)
[2021-07-03] MEDS ORDERED: Miralax Powder 17GM PACKET PO SCH (22:00)
[2021-07-03] MEDS: xanAX 0.5 MG PO SCH (22:08)
[2021-07-03] MEDS: Miralax Powder 17GM PACKET PO SCH (22:08)
[2021-07-03] MEDS: Neurontin 100 MG PO SCH (22:08)
[2021-07-04 03:42] LABS: BAND 3 % (0.0-2.0); Eosinophil 3 % (0.00-3.0); Lymphocytes 6 % (24-44); Microcytosis 1+; Monocyte 4 % (0.0-12.0); Neutrophils 84 % (36.0-66.0); Platelet Estimate NORMAL (NORMAL); Total Cells Counted 100
[2021-07-04 03:43] LABS: Burr Cells 1+
[2021-07-04 05:53] LABS: Hemoglobin 12.3 gm/dl (12.0-16.0); Mean Cell Volume 93.8 fl (78-100); Mean Corpuscular Hemoglobin 29.6 pg (26-32); Mean Corpuscular Hgb Concent. 31.5 g/dl (32-36); Mean Platelet Volume 10.7 fl (7.5-11.0); Platelet Count 361 K/mm3 (150-450); Red Blood Count 4.16 M/mm3 (4.1-5.4); Red Cell Distribution Width 13.6 % (11.5-14.0)
[2021-07-04 06:09] LABS: ALBUMIN 3.2 g/dL (3.5-5.0); ALKALINE PHOSPHATASE 103 U/L (38-126); ANION GAP 10.8 MEQ/L (5-15); BLOOD UREA NITROGEN 19 mg/dL (7-17); CHLORIDE 102 mmol/L (98-107); Carbon Dioxide 30 mmol/L (22-30); Creatinine 1 0.63 mg/dL (0.52-1.04); EST GLOMERULAR FILTRATION RATE > 60.0 ML/MIN; Glucose 152 mg/dL (74-106); Potassium 3.3 mmol/L (3.5-5.1); SGOT/AST 21 U/L (14-36); SGPT/ALT 15 U/L (0-35); SODIUM 140 mmol/L (137-145); Total Protein 6.1 g/dL (6.3-8.2)
[2021-07-04] MEDS: NORVASC 5 MG PO SCH (09:32)
[2021-07-04] MEDS: Calcium 500MG W/Vit D Tablet PO SCH (09:33)
[2021-07-04] MEDS: Acidophilus TABLET PO SCH (09:34)
[2021-07-04] MEDS: Flonase NASAL NS SCH ×2 (09:34→23:04)
[2021-07-04] MEDS: Neurontin 100 MG PO SCH ×3 (09:34→23:06)
[2021-07-04] MEDS: Vitamin C 500 MG PO SCH (09:34)
[2021-07-04] MEDS: PRED-FORTE 1% OPHTHALMIC OP SCH (09:43)
[2021-07-04] MEDS ORDERED: [UNRECOGNIZED DRUG - REMARK] NS SCH (10:00)
[2021-07-04] MEDS ORDERED: CALCIUM CARBONATE PO SCH (10:00)
[2021-07-04] MEDS ORDERED: NON-FORMULARY ITEM (L.Acidoph,Paracasei, B.Lactis [Probiotic] 1 EACH Capsule) PO SCH (10:00)
[2021-07-04] MEDS ORDERED: ROCEPHIN 2 Gm-D5w 50ML BAG** 2 G/50 ML IVPB IV SCH (10:00)
[2021-07-04] MEDS ORDERED: Zithromax 500 MG/ 250 ML NaCl Premix 500 MG/250 ML IVPB IV SCH (10:00)
[2021-07-04] MEDS ORDERED: Flonase NASAL NS SCH (10:00)
[2021-07-04] MEDS ORDERED: [UNRECOGNIZED DRUG - OTHER] PO SCH (10:00)
[2021-07-04] MEDS ORDERED: VITAMIN D3 PO SCH (10:00)
[2021-07-04] MEDS ORDERED: Sterile H2O 10 ml IJ ONE (14:38)
[2021-07-04] MEDS: Tessalon Perles 100 MG PO SCH ×2 (14:45→23:06)
[2021-07-04] MEDS: solu-MEDROL IV SCH ×2 (14:45→23:06)
[2021-07-04] MEDS ORDERED: NON-FORMULARY ITEM (Melatonin/Pyridoxine [Melatonin 5 Mg Tablet] 1 EACH Tablet) PO SCH (22:00)
[2021-07-04] MEDS: Miralax Powder 17GM PACKET PO SCH (23:04)
[2021-07-04] MEDS: MELATONIN PO SCH (23:05)
[2021-07-04] MEDS: xanAX 0.5 MG PO SCH (23:06)
[2021-07-05 05:37] LABS: Hematocrit 39.4 % (35-47); Hemoglobin 12.4 gm/dl (12.0-16.0); Mean Cell Volume 93.6 fl (78-100); Mean Corpuscular Hemoglobin 29.5 pg (26-32); Mean Corpuscular Hgb Concent. 31.5 g/dl (32-36); Mean Platelet Volume 10.4 fl (7.5-11.0); Platelet Count 415 K/mm3 (150-450); Red Blood Count 4.21 M/mm3 (4.1-5.4); Red Cell Distribution Width 13.5 % (11.5-14.0); White Blood Count 15.9 K/mm3 (4.0-10.5)
[2021-07-05 05:44] LABS: ANION GAP 10.3 MEQ/L (5-15); BLOOD UREA NITROGEN 26 mg/dL (7-17); CHLORIDE 102 mmol/L (98-107); Calcium 9.4 mg/dL (8.4-10.2); Carbon Dioxide 30 mmol/L (22-30); Creatinine 1 0.65 mg/dL (0.52-1.04); EST GLOMERULAR FILTRATION RATE > 60.0 ML/MIN; Glucose 208 mg/dL (74-106); Potassium 3.7 mmol/L (3.5-5.1); SODIUM 139 mmol/L (137-145)
--- NOTE | 2021-07-05 08:46 | XRAY ---
Indication: Hypoxia. Comparison: July 03, 2021. Portable apical lordotic chest again hyperinflated with worsening bibasilar infiltrates/atelectasis/effusions, left base now appearing consolidated. Remaining heart and upper lungs unremarkable.
[2021-07-05] MEDS ORDERED: Sterile H2O 10 ml IJ ONE ×2 (10:00→21:09)
[2021-07-05] MEDS: solu-MEDROL IV SCH ×2 (10:18→21:56)
[2021-07-05] MEDS: PRED-FORTE 1% OPHTHALMIC OP SCH (10:19)
[2021-07-05] MEDS: Neurontin 100 MG PO SCH ×3 (10:19→21:54)
[2021-07-05] MEDS: Acidophilus TABLET PO SCH (10:19)
[2021-07-05] MEDS: Vitamin C 500 MG PO SCH (10:19)
[2021-07-05] MEDS: Tessalon Perles 100 MG PO SCH ×3 (10:19→21:54)
[2021-07-05] MEDS: NORVASC 5 MG PO SCH (10:20)
[2021-07-05] MEDS: ENOXAPARIN SODIUM SQ SCH (10:20)
[2021-07-05] MEDS: Calcium 500MG W/Vit D Tablet PO SCH (10:20)
[2021-07-05] MEDS: Flonase NASAL NS SCH ×2 (10:20→21:53)
[2021-07-05] MEDS: Zosyn 3.375 GM Vial 3.375 GM in Sodium Chloride 100ML MINI-BAG PLUS 100 ML IV SCH ×3 (12:28→23:15)
[2021-07-05] MEDS: Miralax Powder 17GM PACKET PO SCH (21:49)
[2021-07-05] MEDS: xanAX 0.5 MG PO SCH (21:54)
[2021-07-05] MEDS: MELATONIN PO SCH (21:54)
[2021-07-06 05:28] LABS: Hematocrit 37.9 % (35-47); Mean Cell Volume 93.6 fl (78-100); Mean Corpuscular Hemoglobin 29.6 pg (26-32); Mean Corpuscular Hgb Concent. 31.7 g/dl (32-36); Mean Platelet Volume 10.1 fl (7.5-11.0); Platelet Count 449 K/mm3 (150-450); Red Blood Count 4.05 M/mm3 (4.1-5.4); Red Cell Distribution Width 13.5 % (11.5-14.0)
[2021-07-06 05:41] LABS: ANION GAP 10.4 MEQ/L (5-15); BLOOD UREA NITROGEN 37 mg/dL (7-17); CHLORIDE 103 mmol/L (98-107); Calcium 9.5 mg/dL (8.4-10.2); Carbon Dioxide 30 mmol/L (22-30); Creatinine 1 0.71 mg/dL (0.52-1.04); EST GLOMERULAR FILTRATION RATE > 60.0 ML/MIN; Glucose 164 mg/dL (74-106); Potassium 3.9 mmol/L (3.5-5.1); SODIUM 139 mmol/L (137-145)
[2021-07-06] MEDS: Zosyn 3.375 GM Vial 3.375 GM in Sodium Chloride 100ML MINI-BAG PLUS 100 ML IV SCH ×3 (05:49→18:38)
[2021-07-06 06:10] LABS: White Blood Count 27.4 K/mm3 (4.0-10.5)
--- NOTE | 2021-07-06 08:39 | XRAY ---
Indication: Hypoxia. Comparison: One day earlier. Portable chest demonstrates minimally worsening bibasilar infiltrates/atelectasis/effusions again left greater than right. Heart not enlarged for AP portable technique. No new cardiopulmonary abnormalities.
[2021-07-06] MEDS: Flonase NASAL NS SCH ×2 (09:18→20:57)
[2021-07-06] MEDS: PRED-FORTE 1% OPHTHALMIC OP SCH (09:18)
[2021-07-06] MEDS: Vitamin C 500 MG PO SCH (09:20)
[2021-07-06] MEDS: Neurontin 100 MG PO SCH ×3 (09:20→20:58)
[2021-07-06] MEDS: Acidophilus TABLET PO SCH (09:20)
[2021-07-06] MEDS: NORVASC 5 MG PO SCH (09:21)
[2021-07-06] MEDS: Tessalon Perles 100 MG PO SCH ×3 (09:21→20:58)
[2021-07-06] MEDS: ENOXAPARIN SODIUM SQ SCH (09:21)
[2021-07-06] MEDS: Calcium 500MG W/Vit D Tablet PO SCH (09:22)
--- NOTE | 2021-07-06 13:03 | CONS ---
CONSULT DATE: 07/06/2021 REASON FOR CONSULT: Evaluation of pneumonia. HISTORY: Sophia Butcher is an 85-year-old nonsmoker, in good health, who has been sick for about the past three days. The patient started having chills, cough and low-grade fever. She was seen initially in [facility]. She subsequently started having progressively more expectoration with drop in oxygen saturation. She had since been hospitalized on 07/04/2021. She has been placed on broad spectrum antibiotics. The patient's chest x-rays have shown worsening infiltrates mainly at lung bases although clinically she has been feeling well. Her cough has significantly improved. She also has been weaning herself of supplemental oxygen. She is sitting in a chair. She denies any acute symptoms and reportedly has been feeling well. She does report some dysphagia raising suspicion for question of aspiration. The patient denies prior history of pneumonia, asthma or common pulmonary problems. PAST MEDICAL HISTORY: Positive for history of hypertension and anxiety. She is also on Neurontin for neuropathy. PAST SURGICAL HISTORY: No recent surgery. PERSONAL AND SOCIAL HISTORY: The patient lives with her . She is a nonsmoker. She is very active and exercises at the fitness center. MEDICATIONS: Medications are reviewed. ALLERGIES: NKDA. PHYSICAL EXAMINATION: This is an elderly woman who is sitting comfortably in chair, able to carry out a good conversation. Vital signs noted. HEENT: Normocephalic. Oral exam unremarkable. CVS: First and second heart sounds are normal, regular, rhythmic. RESPIRATORY: Shows diminished breath sounds, occasional posterior crackles are heard. ABDOMEN: Soft. EXTREMITIES: No edema is noted. LABORATORY DATA AND TESTS: Labs and x-rays all reviewed. ASSESSMENT: This is an 85-year-old woman admitted with: 1) Bilateral lower lobe community acquired pneumonia. 2) Hypoxemia, mild and resolved. 3) Leukocytosis. 4) History of hypertension. 5) Dysphagia. 6) Anxiety disorder. RECOMMENDATIONS: 1) The patient clinically appears to have certainly done well. I believe the radiologic features outlying clinical improvement and are likely to resolve in the near future. 2) Leukocytosis (?) from steroids. Will monitor with repeat counts in about a week or two after the patient has been off steroids. 3) The patient requires sputum culture and will send for the same. Although at this after having received antibiotics for the past 48 hours, I am sure of the clinical benefit of the same. 4) Advised the patient that she can ambulate and if she does well she may be able to be switched to oral antibiotic of ten-day duration. I have advised her to follow up with me after completion of antibiotic therapy in two weeks. 5) Deep vein thrombosis prophylaxis. 6) Will get speech and swallow evaluation while she is in the hospital to rule out aspiration. I have discussed this plan with patient and she is in agreement. I will be glad to reassess in outpatient setting in two weeks or earlier as needed. Thank you, Dr. Flynn, for allowing me to participate in the care of your patient.
[2021-07-06] MEDS: VANCOMYCIN 1 GRAM/200 ML BAG 1 GM/200 ML PIGGYBACK IV SCH (13:51)
--- NOTE | 2021-07-06 19:59 | PCM.HP ---
History of Present Illness - Chief Complaint Chief Complaint: PNEUMONIA, HYPOXIA, LEUKOCYTOSIS Date: 07/04/21 History of Present Illness: is a 85 year old female. Pt. presented to ER with increasing sob, cough and fevers over the past several days, upon presentation the patient was found to have hypoxia and bilateral lower lobe infiltrates. Pt. was admitted for iv antibiotics and further care with oxygen supplementation. - Review of Systems Constitutional: Fever Eyes: No Symptoms Ears, Nose, & Throat: No Symptoms Respiratory: Cough, Short Of Breath Cardiac: No Chest Pain, No Edema, No Syncope Abdominal/Gastrointestinal: No Abdominal Pain, No Nausea, No Vomiting, No Diarrhea Genitourinary Symptoms: No Dysuria Musculoskeletal: No Back Pain, No Neck Pain Skin: No Rash Neurological: No Dizziness, No Focal Weakness, No Sensory Changes Psychological: No Symptoms Endocrine: No Symptoms Hematologic/Lymphatic: No Symptoms Immunological/Allergic: No Symptoms Medications & Allergies Home Medications: Home Medication List ALPRAZolam 1 MG [Xanax 1 mg] 1 mg PO HS 02/20/19 [History Confirmed 07/03/21] Fluticasone Propionate [24 Hour Allergy] 1 spray NS DAILY 02/20/19 [History Confirmed 07/03/21] Prednisolone Acetate OPHTH [Pred-Forte 1% Ophthalmic] 1 drop OP DAILY 02/20/19 [History Confirmed 07/03/21] Ascorbic Acid 500 mg [Vitamin C 500 MG] 500 mg PO DAILY 03/02/19 [History Confirmed 07/03/21] Calcium Carbonate/Vitamin D3 [Calcium 500-Vit D3 600 Caplet] 2 each PO DAILY 03/02/19 [History Confirmed 07/03/21] Amlodipine Besylate 5 mg [Norvasc 5 mg] 5 mg PO DAILY 05/20/20 [History Confirmed 07/03/21] Gabapentin 100 mg PO TID 05/20/20 [History Confirmed 07/03/21] L.acidoph,Paracasei, B.lactis [Probiotic] 1 each PO DAILY 05/20/20 [History Confirmed 07/03/21] Melatonin/Pyridoxine [Melatonin 5 mg Tablet] 5 mg PO HS 05/20/20 [History Confirmed 07/03/21] Polyethylene Glycol 3350 17 gm [Miralax Powder 17GM PACKET] 8.5 gm PO HS 07/03/21 [History Confirmed 07/03/21] Allergies/Adverse Reactions: Allergies Allergy/AdvReac Type Severity Reaction Status Date / Time No Known Drug Allergies Allergy Verified 07/03/21 14:13 - Past Medical History Past Medical History: Yes Neurological History: No Pertinent History ENT History: Cataracts Cardiac History: Hypertension Respiratory History: No Pertinent History Endocrine Medical History: No Pertinent History Musculoskelatal History: No Pertinent History GI Medical History: Other History: No Pertinent History Pyscho-Social History: No Pertinent History Reproductive Disorders: No Pertinent History Comment: 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 hx appendix cancer - Female History Are you now?: No - Past Surgical History Past Surgical History: Yes Neuro Surgical History: No Pertinent History Cardiac History: No Pertinent History Respiratory Surgery: No Pertinent History GI Surgical History: Appendectomy, Bowel Surgery, Colon Resection Genitourinary Surgical Hx: No Pertinent History Musculskeletal Surgical Hx: No Pertinent History Female Surgical History: No Pertinent History Other Surgical History: cataracts removed bilateral eyes, cornea transplant bilateral eyes. 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, apendectomy for cancer - Social History Smoking Status: Never smoker Exposure to second hand smoke: No Alcohol: None Drug Use: none - Physical Exam Vital Signs: Vital Signs - 24 hr Temp Pulse Resp BP Pulse Ox 07/06/21 16:00 98.4 F 87 18 158/67 91 L 07/06/21 12:00 97.9 F 84 18 171/74 92 L 07/06/21 08:33 93 L 07/06/21 08:00 98.3 F 68 18 185/74 94 L 07/06/21 04:00 97.4 F 80 24 184/79 96 07/06/21 00:07 98.3 F 79 18 153/69 95 07/05/21 20:00 97.8 F 96 H 18 160/74 95 General Appearance: no apparent distress, alert Neurologic Exam: alert, oriented x 3, cooperative, normal mood/affect, No motor deficits Eye Exam: PERRL/EOMI, eyes nml inspection Ears, Nose, Throat Exam: normal ENT inspection, TMs normal, pharynx normal, moist mucous membranes Neck Exam: normal inspection, non-tender, supple, full range of motion Respiratory Exam: normal breath sounds, lungs clear, No respiratory distress Cardiovascular Exam: regular rate/rhythm, normal heart sounds, normal peripheral pulses Gastrointestinal/Abdomen Exam: soft, normal bowel sounds, No tenderness, No mass Back Exam: normal inspection, normal range of motion, No CVA tenderness, No vertebral tenderness Extremity Exam: normal inspection, normal range of motion, pelvis stable Skin Exam: normal color, warm, dry, No rash Lymphatic Exam: No adenopathy Results - Labs Lab/Micro Results: Lab Results-Last 24 Hours 07/06/21 07/06/21 Range/Units 05:15 05:15 WBC 27.4 H* (4.0-10.5) K/mm3 RBC 4.05 L (4.1-5.4) M/mm3 Hgb 12.0 (12.0-16.0) gm/dl Hct 37.9 (35-47) % MCV 93.6 (78-100) fl MCH 29.6 (26-32) pg MCHC 31.7 L (32-36) g/dl RDW 13.5 (11.5-14.0) % Plt Count 449 (150-450) K/mm3 MPV 10.1 (7.5-11.0) fl Sodium 139 (137-145) mmol/L Potassium 3.9 (3.5-5.1) mmol/L Chloride 103 (98-107) mmol/L Carbon Dioxide 30 (22-30) mmol/L Anion Gap 10.4 (5-15) MEQ/L BUN 37 H (7-17) mg/dL Creatinine 0.71 (0.52-1.04) mg/dL Estimated GFR > 60.0 ML/MIN Glucose 164 H (74-106) mg/dL Calcium 9.5 (8.4-10.2) mg/dL Microbiology 07/03/21 15:02 Blood Culture - Preliminary Blood NO GROWTH TO DATE 07/03/21 14:00 Blood Culture - Preliminary Blood NO GROWTH TO DATE - Radiology Impressions Radiology Exams & Impressions: Radiology Procedures Category Date Time Status CHEST 1 VIEW (PORTABLE) DAILY Exams 07/05/21 05:52 Completed CHEST 1 VIEW (PORTABLE) DAILY Exams 07/06/21 06:00 Completed MODIFIED BARIUM SWALLOW (RAD) [MODIFIED BARIUM SWALLOW Exams 07/07/21 10:00 Ordered EXAM] Routine Portable Chest [CHEST 1 VIEW (PORTABLE)] Routine Exams 07/07/21 07:00 Ordered Assessment/Plan (1) Bilateral pneumonia Current Visit: Yes Status: Acute Assessment & Plan: initiate iv abx Code(s): J18.9 - PNEUMONIA, UNSPECIFIED ORGANISM (2) Hypoxia Current Visit: Yes Status: Acute Assessment & Plan: supplemental oxygen via [place] Code(s): R09.02 - HYPOXEMIA
[2021-07-06] MEDS: Miralax Powder 17GM PACKET PO SCH (20:57)
[2021-07-06] MEDS: MELATONIN PO SCH (20:58)
[2021-07-06] MEDS: xanAX 0.5 MG PO SCH (20:58)
[2021-07-07] MEDS: Zosyn 3.375 GM Vial 3.375 GM in Sodium Chloride 100ML MINI-BAG PLUS 100 ML IV SCH ×5 (00:03→23:26)
[2021-07-07 05:43] LABS: Hematocrit 40.1 % (35-47); Hemoglobin 12.5 gm/dl (12.0-16.0); Mean Cell Volume 94.1 fl (78-100); Mean Corpuscular Hemoglobin 29.3 pg (26-32); Mean Corpuscular Hgb Concent. 31.2 g/dl (32-36); Mean Platelet Volume 9.8 fl (7.5-11.0); Platelet Count 518 K/mm3 (150-450); Red Blood Count 4.26 M/mm3 (4.1-5.4); Red Cell Distribution Width 13.6 % (11.5-14.0); White Blood Count 17.4 K/mm3 (4.0-10.5)
[2021-07-07 06:40] LABS: ANION GAP 11.8 MEQ/L (5-15); BLOOD UREA NITROGEN 34 mg/dL (7-17); CHLORIDE 104 mmol/L (98-107); Calcium 9.2 mg/dL (8.4-10.2); Carbon Dioxide 30 mmol/L (22-30); EST GLOMERULAR FILTRATION RATE > 60.0 ML/MIN; Glucose 93 mg/dL (74-106); Potassium 3.9 mmol/L (3.5-5.1); SODIUM 141 mmol/L (137-145)
--- NOTE | 2021-07-07 08:44 | XRAY ---
Indication: Pneumonia. Comparison: One day earlier. Portable chest unchanged again demonstrating bibasilar infiltrates/atelectasis/effusion left greater than right. Heart not enlarged. No new cardiopulmonary abnormalities.
[2021-07-07] MEDS: VANCOMYCIN 1 GRAM/200 ML BAG 1 GM/200 ML PIGGYBACK IV SCH (09:37)
[2021-07-07] MEDS: Tessalon Perles 100 MG PO SCH ×3 (09:38→20:55)
[2021-07-07] MEDS: ENOXAPARIN SODIUM SQ SCH (09:38)
[2021-07-07] MEDS: Flonase NASAL NS SCH ×2 (09:38→20:54)
[2021-07-07] MEDS: Calcium 500MG W/Vit D Tablet PO SCH (09:38)
[2021-07-07] MEDS: Vitamin C 500 MG PO SCH (09:39)
[2021-07-07] MEDS: Acidophilus TABLET PO SCH (09:39)
[2021-07-07] MEDS: PRED-FORTE 1% OPHTHALMIC OP SCH (09:39)
[2021-07-07] MEDS: NORVASC 5 MG PO SCH (09:39)
[2021-07-07] MEDS: Neurontin 100 MG PO SCH ×3 (09:40→20:56)
--- NOTE | 2021-07-07 10:55 | XRAY ---
Indication: Possible aspiration. Modified barium swallow study performed by the Department of speech therapy with fluoroscopic assistance provided. Patient ingested multiple consistencies of liquids and solids. Full report and accommodations will be reported separately. Approximately 1 minute 11 seconds fluoroscopy used.
[2021-07-07] MEDS: xanAX 0.5 MG PO SCH (20:55)
[2021-07-07] MEDS: MELATONIN PO SCH (20:55)
[2021-07-07] MEDS: Miralax Powder 17GM PACKET PO SCH (20:56)
[2021-07-08 05:06] VITALS: BP 183/79
[2021-07-08] MEDS: Zosyn 3.375 GM Vial 3.375 GM in Sodium Chloride 100ML MINI-BAG PLUS 100 ML IV SCH ×2 (05:07→12:09)
[2021-07-08 06:14] LABS: Hematocrit 39.8 % (35-47); Hemoglobin 12.4 gm/dl (12.0-16.0); Mean Cell Volume 93.9 fl (78-100); Mean Corpuscular Hemoglobin 29.2 pg (26-32); Mean Corpuscular Hgb Concent. 31.2 g/dl (32-36); Mean Platelet Volume 9.5 fl (7.5-11.0); Platelet Count 473 K/mm3 (150-450); Red Blood Count 4.24 M/mm3 (4.1-5.4); Red Cell Distribution Width 13.8 % (11.5-14.0); White Blood Count 13.5 K/mm3 (4.0-10.5)
[2021-07-08 06:51] LABS: ANION GAP 7.7 MEQ/L (5-15); BLOOD UREA NITROGEN 18 mg/dL (7-17); CHLORIDE 103 mmol/L (98-107); Calcium 8.9 mg/dL (8.4-10.2); Carbon Dioxide 34 mmol/L (22-30); Creatinine 1 0.69 mg/dL (0.52-1.04); EST GLOMERULAR FILTRATION RATE > 60.0 ML/MIN; Glucose 97 mg/dL (74-106); Potassium 3.3 mmol/L (3.5-5.1); SODIUM 141 mmol/L (137-145)
[2021-07-08 06:55] VITALS: O2SAT 92
--- NOTE | 2021-07-08 07:19 | XRAY ---
Indication: Hypoxia. Comparison: One day earlier. Portable chest remains unchanged again demonstrating bibasilar infiltrates/atelectasis/effusions left greater than right. Heart not enlarged. No new cardiopulmonary abnormalities.
[2021-07-08] MEDS: Calcium 500MG W/Vit D Tablet PO SCH (09:26)
[2021-07-08] MEDS: ENOXAPARIN SODIUM SQ SCH (09:26)
[2021-07-08] MEDS: Acidophilus TABLET PO SCH (09:26)
[2021-07-08] MEDS: Flonase NASAL NS SCH (09:26)
[2021-07-08] MEDS: Vitamin C 500 MG PO SCH (09:27)
[2021-07-08] MEDS: Neurontin 100 MG PO SCH (09:27)
[2021-07-08] MEDS: VANCOMYCIN 1 GRAM/200 ML BAG 1 GM/200 ML PIGGYBACK IV SCH (09:27)
[2021-07-08] MEDS: Tessalon Perles 100 MG PO SCH (09:27)
[2021-07-08] MEDS: PRED-FORTE 1% OPHTHALMIC OP SCH (09:27)
[2021-07-08] MEDS: NORVASC 5 MG PO SCH (09:27)
[2021-07-08] MEDS ORDERED: Klor Con 10 MEQ PO ONE (10:27)
[2021-07-08 13:19] VITALS: PULSE 87
[2021-07-09] MEDS ORDERED: TROUGH DRUG LEVELS IJ ONE (09:30)
--- NOTE | 2021-07-09 11:50 | PCM.DS ---
Discharge Summary Date of Admission: 07/04/21 13:00 Date of Discharge: 07/08/2021 Admitting Physician: FRANTZ SPENCER Consults: Consults on Case 07/06/21 11:53 Consult Pulmonology ROUTINE Primary Care Provider: FRANTZ SPENCER Allergies Allergies No Known Drug Allergies Allergy (Verified 07/03/21 14:13) Hospital Summary - Hospital Course Hospital Course: Pt. admitted and clinically continued to improve but chest x-ray worsened the first few days, then stabilized and pt. was never able to fully get off the oxygen, requirements did decline to only when she was active, otherwise she maintained an oxygen saturation of 93% on room air but dropped to 88% with activity, with stabilized chest x-ray and clinical improvement the patient was ready for discharge and noted she was having more stress while being away from home feeling it better for her to rest and have close outpatient follow-up. - Vitals & Intake/Output Vital Signs: Vital Signs Temperature 96.9 F 07/08/21 05:05 Pulse Rate 87 07/08/21 13:00 Respiratory Rate 23 07/08/21 09:00 Blood Pressure 183/79 07/08/21 05:05 O2 Sat by Pulse Oximetry 92 L 07/08/21 13:00 Intake & Output: Intake & Output 07/06/21 07/07/21 07/08/21 07/09/21 11:59 11:59 11:59 11:59 Intake Total 708 688 750 Output Total 850 1000 1600 Balance -142 -312 -850 Weight 56.3 kg 59.4 kg 58.7 kg - Lab Result Diagrams: 07/08/21 06:01 07/08/21 06:01 Micro Results-Entire Visit: Microbiology 07/03/21 14:00 Blood Culture Gram Stain - Final Blood Not Reportable Blood Culture - Final NO GROWTH 07/03/21 15:02 Blood Culture Gram Stain - Final Blood Not Reportable Blood Culture - Final NO GROWTH 07/06/21 18:06 Sputum Culture - Preliminary Sputum - Expectorant NO GROWTH TO DATE - Radiology Exams Ordered Rad Exams-Entire Visit: Radiology Procedures Category Date Time Status CHEST 1 VIEW (PORTABLE) DAILY Exams 07/08/21 08:00 Completed - Procedures and Test Procedures and Tests throughout Hospitalization: Therapy Orders & Screens 07/03/21 18:49 Respiratory Therapy Assessment DAILY Comment: RT eval Diagnosis: Pneumonia, hypoxia 07/03/21 19:52 Oxygen NASAL CANNULA 2 lpm Comment: Diagnosis: Pneumonia, hypoxia 07/06/21 12:54 Speech Therapy Eval & Treat [ Eval & Melissa ( Order)] .as ordered Comment: Physician Instructions: Reason For Exam: dysphagia Evaluate: Yes Treat: Yes Reason for Eval: dysphagia Diagnosis: PNEUMONIA, HYPOXIA, LEUKOCYTOSIS 07/08/21 10:28 Qualify for Home Oxygen TODAY Comment: Diagnosis: PNEUMONIA, HYPOXIA, LEUKOCYTOSIS Discharge Exam General Appearance: no apparent distress, alert Neurologic Exam: alert, oriented x 3, cooperative, normal mood/affect, nml cerebellar function, sensation nml, No motor deficits Eye Exam: PERRL, EOMI, eyes nml inspection Ears, Nose, Throat Exam: normal ENT inspection, pharynx normal, moist mucous mem branes Neck Exam: normal inspection, non-tender, supple, full range of motion Respiratory Exam: normal breath sounds, lungs clear, No respiratory distress Cardiovascular Exam: regular rate/rhythm, normal heart sounds Gastrointestinal/Abdomen Exam: soft, No tenderness, No mass Pelvic Exam: deferred Rectal Exam: deferred Back Exam: normal inspection, normal range of motion, No CVA tenderness, No vertebral tenderness Extremity Exam: normal inspection, normal range of motion Skin Exam: normal color, warm, dry Final Diagnosis/Problem List - Final Discharge Diagnosis/Problem (1) Bilateral pneumonia Status: Acute Code(s): J18.9 - PNEUMONIA, UNSPECIFIED ORGANISM (2) Hypoxia Status: Acute Code(s): R09.02 - HYPOXEMIA - Discharge Discharge Date: 07/08/21 Disposition: Home, Self-Care Condition: Stable Prescriptions: New Amoxicillin/Potassium Clav [Augmentin 875-125 Tablet] 1 each PO BID 10 Days #20 tablet Azithromycin [Azithromycin 250 mg Pack] 250 mg PO UD 5 Days #6 tablet Continue Prednisolone Acetate OPHTH [Pred-Forte 1% Ophthalmic] 1 drop OP DAILY ALPRAZolam 1 MG [Xanax 1 mg] 1 mg PO HS Fluticasone Propionate [24 Hour Allergy] 1 spray NS DAILY Ascorbic Acid 500 mg [Vitamin C 500 MG] 500 mg PO DAILY Calcium Carbonate/Vitamin D3 [Calcium 500-Vit D3 600 Caplet] 2 each PO DAILY Melatonin/Pyridoxine [Melatonin 5 mg Tablet] 5 mg PO HS Gabapentin 100 mg PO TID Amlodipine Besylate 5 mg [Norvasc 5 mg] 5 mg PO DAILY L.acidoph,Paracasei, B.lactis [Probiotic] 1 each PO DAILY Polyethylene Glycol 3350 17 gm [Miralax Powder 17GM PACKET] 8.5 gm PO HS Instructions: Oxygen Therapy, Adult, Azithromycin (Systemic), Amoxicillin and Clavulanate Follow up with: TRAM MAGUIRE [ACTIVE STAFF] - 07/20/21 9:00 am (At [facility]) FRANTZ SPENCER MD [Primary Care Provider] - 07/14/21 10:00 am Forms: Discharge Instructions
== END 2021-07-08 13:11 | disposition home or self-care (01) | DRG 195 ==
LOC: ED 14:00 → MED SURG 17:38 → OBSVTOIN 07-04 13:00
PROVIDERS: ADMIT Family Medicine; ATTEND Family Medicine
DX: J18.9 Pneumonia, unspecified organism (principal); R09.02 Hypoxemia; I10 Essential (primary) hypertension; D72.829 Elevated white blood cell count, unspecified; F41.9 Anxiety disorder, unspecified; G62.9 Polyneuropathy, unspecified; R13.10 Dysphagia, unspecified; Z79.899 Other long term (current) drug therapy; Z20.828 Contact with and (suspected) exposure to other viral communicable diseases
CPT/HCPCS: 0241U; 36000; 36415; 71045; 74230; 80048; 80053; 81001; 83880; 84484; 85025; 85027; 87040; 87070; 92611; 93005; 93041; 94760; 96365; 96375; 99285; 93268; J0456; J0696; J1650; J2930; A9270-GY; G0378; J3370

== ENCOUNTER 2024-08-21 15:11 | Emergency (ER) | payer MEDICARE, BC ==
--- NOTE | 2024-08-21 15:13 | ERPHSYRPT ---
- History of Present Illness Time Seen by Provider: 08/21/24 15:13 Historian: patient Exam Limitations: no limitations Physician History: This is a thin 89-year-old white female patient who is very active and is a patient of Dr. Spencer. Patient was seen at Dr. Spencer's office prior to arrival. The patient in the last several weeks has had intermittent chest achiness. Last evening, per her report, she had the achiness that was a little more intense than typical and was in there mid substernal region that radiated up into the left side of her neck behind her ear and through to her back between her scapula. Because of the above symptoms, Dr. Spencer ordered twelve-lead EKGs x 2 at his office which did show ST elevation in the lateral leads. They sent her to the emergency department. Patient states her symptoms have resolved. Patient has never had cardiac stents or coronary artery bypass graft. She does see hospital personnel director Dr. Whitney. She has a history of osteoarthritis and hypertension. Timing/Duration: yesterday, intermittent (Intermittently over the last several weeks), worse (Symptoms were worse yesterday) Location: substernal, central Chest Pain Radiation: neck (Left side), back (Tween the scapular) Severity of Pain-Max: mild (To moderate last night) Severity of Pain-Current: none Modifying Factors: Improves With: nothing Associated Symptoms: denies symptoms Prior Chest Pain/Cardiac Workup: no prior cardiac workup, recently seen/treated (In her primary care physician's office) Nitro Today/Relief: no nitro taken today Aspirin Treatment Today: no aspirin today Allergies/Adverse Reactions: No Known Drug Allergies Allergy (Verified 03/13/23 17:39) Home Medications: Ascorbic Acid [Vitamin C] 1 cap PO DAILY 06/04/22 [History] Calcium Citrate 1 tab PO DAILY 06/04/22 [History] Cholecalciferol (Vitamin D3) [Vitamin D] 1 cap PO DAILY 06/04/22 [History] L.acidoph,Paracasei, B.lactis [Probiotic] 1 cap PO DAILY 06/04/22 [History] Hx Tetanus, Diphtheria Vaccination/Date Given: No Hx Influenza Vaccination/Date Given: Yes Hx Pneumococcal Vaccination/Date Given: No Travel Risk - International Travel Have you traveled outside of the country in past 3 weeks: No - Emerging Infectious Disease Are you exhibiting symptoms associated with any current EIDs: No - Review of Systems Constitutional: No Symptoms Eyes: No Symptoms Ears, Nose, & Throat: No Symptoms Respiratory: No Symptoms Cardiac: Chest Pain Abdominal/Gastrointestinal: No Symptoms Genitourinary Symptoms: No Symptoms Musculoskeletal: No Symptoms Skin: No Symptoms Neurological: No Symptoms Psychological: No Symptoms Endocrine: No Symptoms Hematologic/Lymphatic: No Symptoms Immunological/Allergic: No Symptoms All Other Systems: Reviewed and Negative - Past Medical History Pertinent Past Medical History: Yes Neurological History: No Pertinent History ENT History: Cataracts Cardiac History: Hypertension Respiratory History: Other Endocrine Medical History: No Pertinent History Musculoskeletal History: Osteoarthritis GI Medical History: Other History: No Pertinent History Psycho-Social History: No Pertinent History Female Reproductive Disorders: No Pertinent History Other Medical History: PNEUMONIA - Past Surgical History Past Surgical History: Yes Neuro Surgical History: No Pertinent History Cardiac: No Pertinent History Respiratory: No Pertinent History Gastrointestinal: Appendectomy, Bowel Surgery, Colon Resection Genitourinary: No Pertinent History Musculoskeletal: No Pertinent History Female Surgical History: No Pertinent History Other Surgical History: cataracts removed bilateral eyes, cornea transplant bilateral eyes. 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, apendectomy for cancer - Social History Smoking Status: Never smoker Exposure to second hand smoke: No Drug Use: none Patient Lives Alone: No (lives with [facility]) - Physical Exam General Appearance: no apparent distress, alert, anxiety, thin Eye Exam: PERRL/EOMI, eyes nml inspection Ears, Nose, Throat Exam: normal ENT inspection, moist mucous membranes Neck Exam: normal inspection, non-tender, supple, full range of motion Respiratory Exam: normal breath sounds, lungs clear, airway intact, No chest tenderness, No respiratory distress Cardiovascular Exam: regular rate/rhythm, normal heart sounds, normal peripheral pulses Gastrointestinal/Abdomen Exam: soft, normal bowel sounds, No tenderness Pelvic Exam: not done Rectal Exam: not done Back Exam: normal inspection, normal range of motion, No CVA tenderness, No vertebral tenderness Extremity Exam: normal inspection, normal range of motion, pelvis stable Neurologic Exam: alert, oriented x 3, cooperative, tribal delegate II-XII nml as tested, nml cerebellar function, nml station & gait, sensation nml Skin Exam: normal color, warm, dry Lymphatic Exam: No adenopathy SpO2 Interpretation: normal O2 Delivery: Room Air - Course Nursing assessment & vital signs reviewed: Yes EKG Interpreted by Me: RATE, Sinus Rhythm, Right [place] Deviation (Borderline), Other (I appreciate ST elevation in V4 V5 minimal elevation in V3) Ordered Tests: Active Orders 24 hr Category Date Time Status [employer] STAT Care 08/21/24 15:14 Active EKG-ER Only STAT Care 08/21/24 15:13 Active IV Insertion STAT Care 08/21/24 15:13 Active Pulse Oximetry (ED) STAT Care 08/21/24 15:13 Active CBC W DIFF Stat Lab 08/21/24 15:13 Ordered CMP Stat Lab 08/21/24 15:13 Ordered PROTIME WITH INR Stat Lab 08/21/24 15:13 Ordered PTT Stat Lab 08/21/24 15:13 Ordered TROPONIN Q4H Lab 08/21/24 15:15 Ordered TROPONIN Q4H Lab 08/21/24 19:15 Ordered TROPONIN Q4H Lab 08/21/24 23:15 Ordered Medication Summary Generic Name Dose Route Start Last Admin Trade Name Freq PRN Reason Stop Dose Admin Nitroglycerin/Dextrose 250 mls @ 1.5 mls/hr 08/21/24 15:14 Ntg 0.2mg/Ml In D5w Glass IV 09/20/24 15:13 .Q24H PRN CHEST PAIN Protocol 5 MCG/MIN Discontinued Medications Generic Name Dose Route Start Last Admin Trade Name Freq PRN Reason Stop Dose Admin Aspirin 324 mg 08/21/24 15:13 Aspirin 81 Mg Tab.Chew PO 08/21/24 15:14 STAT ONE Heparin Sodium (Beef Lung) 5,000 unit 08/21/24 15:14 Heparin 5000 Units/0.5 Ml 5,000 Unit/0.5 Ml Syr IV 08/21/24 15:15 STAT ONE - Progress Progress: re-examined Air Movement: good Progress Note: 08/21/24 15:29 My medical decision making in the assignment of high complexity of this patient's medical issue is based on review the patient's past medical history, review of the patient's medication list, reviewed patient drug allergy list, history present illness, physical findings and review of the patient's twelve- lead EKGs that were sent over from the patient's primary care doctor's office. We repeated the twelve-lead EKG upon arrival to our emergency department and there is persistent ST elevation in the anterior lateral leads. The workup in this patient includes placement of intravenous line, repeat twelve-lead EKG, CBC, CMP, troponin level. The patient prefers [facility]. We have started the STEMI alert with [facility] emergency department. All twelve-lead EKGs were faxed to the emergency department there. Differential diagnosis includes was not limited to electrolyte abnormalities, STEMI, acute coronary syndrome, arrhythmias. I spoke with Dr. Campos at [facility] emergency department. I faxed over the twelve-lead EKGs to him. He did review them. He accepts the patient in transfer. I placed the patient on nitroglycerin drip and provide the patient with heparin IV bolus. Patient also received 4 baby aspirin. 08/21/24 15:33 Blood Culture(s) Obtained: No Antibiotics given: No Counseled pt/family regarding: lab results, diagnosis, need for follow-up Medical Desision Making - Diagnostic Testing Diagnostic test were ordered, analyzed, and reviewed by me: Yes - Risk of complications The pt has a high risk of morbidity or mortality based on: Decision regarding hospitilization or escalation of hosp level of care - Departure Departure Disposition: Transfer Clinical Impression: Chest pain, STEMI (ST elevation myocardial infarction) Condition: Fair Critical Care Time: Yes Critical Care Time(excluding separately billable procedures): Critical 30-74 mins (40) Referrals: FRANTZ SPENCER MD [Primary Care Provider] - Follow up/PCP as directed
[2024-08-21 15:19] LABS: Absolute Neutrophil Ct (ANC) 9.46 x10^3/uL (1.56-6.13); BASOPHIL % 0.5 % (0.1-1.2); Basophil (Absolute #) 0.06 x10^3/uL (0.01-0.08); Eosinophil % 1.2 % (0.7-5.8); Eosinophil (Absolute #) 0.15 x10^3/uL (0.04-0.36); Hematocrit 38.2 % (34.1-44.9); Hemoglobin 12.4 g/dL (11.2-15.7); IMMATURE GRAN # 0.03 x10^3u/L (0.001-0.031); IMMATURE GRAN % 0.2 % (0.001-0.429); Lymphocyte (Absolute #) 1.56 x10^3/uL (1.18-3.74); Lymphocytes % 12.9 % (19.3-51.7); Mean Cell Volume 90.1 fL (79.4-94.8); Mean Corpuscular Hemoglobin 29.2 pg (25.6-32.2); Mean Corpuscular Hgb Concent. 32.5 g/dL (32.2-35.5); Mean Platelet Volume 10.8 fL (9.4-12.3); Monocyte (Absolute #) 0.88 x10^3/uL (0.24-0.86); Monocytes % 7.2 % (4.7-12.5); Platelet Count 300 x10^3/uL (182-369); Red Blood Count 4.24 x10^6/uL (3.93-5.22); Red Cell Distribution Width 13.1 % (11.7-14.4); White Blood Count 12.1 x10^3/uL (3.98-10.04)
[2024-08-21] MEDS ORDERED: BABY ASPIRIN 81 MG CHEW ONE (15:23)
[2024-08-21] MEDS ORDERED: HEPARIN 5000 UNITS/0.5 ML (HIGH RISK MED) ONE (15:23)
[2024-08-21] MEDS ORDERED: Ntg 0.2MG/Ml in D5W GLASS*** 250 ML IV ONE (15:24)
[2024-08-21] MEDS: HEPARIN 5000 UNITS/0.5 ML (HIGH RISK MED) IV ONE (15:26)
[2024-08-21] MEDS: BABY ASPIRIN 81 MG CHEW PO ONE (15:26)
[2024-08-21] MEDS: Ntg 0.2MG/Ml in D5W GLASS*** 250 ML IV PRN (15:26)
[2024-08-21 15:27] VITALS: RESP 18
[2024-08-21 15:35] LABS: INR 0.97 (0.8-3.0); PROTIME 10.6 SECONDS (9.4-12.5); PTT 25.7 SECONDS (25.1-36.5)
[2024-08-21 15:43] LABS: ALBUMIN 3.9 g/dL (3.5-5.0); ANION GAP 13.6 MEQ/L (5-15); BILIRUBIN,TOTAL 0.5 mg/dL (0.2-1.3); Calcium 9.6 mg/dL (8.4-10.2); Creatinine 1 0.82 mg/dL (0.52-1.04); EST GLOMERULAR FILTRATION RATE 68.3 ML/MIN; Potassium 4.2 mmol/L (3.5-5.1); Total Protein 6.6 g/dL (6.3-8.2)
[2024-08-21 15:45] VITALS: BP 188/82; PULSE 89; O2SAT 96
== END 2024-08-21 15:30 | disposition short-term general hospital (02) ==
LOC: ED 15:11
DX: I21.3 ST elevation (STEMI) myocardial infarction of unspecified site (principal); R07.9 Chest pain, unspecified; I10 Essential (primary) hypertension; Z79.899 Other long term (current) drug therapy
CPT/HCPCS: 36415; 80053; 83880; 84484; 85025; 85610; 85730; 93005; 93041; 94760; 96374; 96375; 99285; 99291; J1644; A9270-GY

== ENCOUNTER 2024-09-07 20:23 | Observation (INO) | payer MEDICARE, BC ==
--- NOTE | 2024-09-07 20:35 | ERPHSYRPT ---
- History of Present Illness Time Seen by Provider: 09/07/24 20:33 Historian: patient, family Exam Limitations: no limitations Physician History: This is an 89-year-old white female patient brought to the emergency department by private vehicle accompanied by her daughter because of nonradiating central chest pain. Patient also had a fever of 101 F upon arrival to the emergency department. The patient has a history of hypertension and osteoarthritis. Patient was seen on 08/21/2024 for the same issue of chest pain. She was sent to [facility] where she was observed and it was determined that she did not have an acute heart attack. She has had this chest pain intermittently for several weeks. She has never been diagnosed with coronary artery disease past. Patient's bread panner is Dr. Whitney. Patient is mildly tachycardic and again, she has a fever measured at 101 F. She denies cough. She denies diarrhea. She denies dysuria. Timing/Duration: today Activities at Onset: none Quality: aching Location: substernal, central Chest Pain Radiation: no radiation Severity of Pain-Max: moderate Severity of Pain-Current: mild Modifying Factors: Worsens With: breathing, coughing Associated Symptoms: fever, No abdominal pain, No shortness of breath, No cough, No diaphoresis Prior Chest Pain/Cardiac Workup: recently seen/treated, recent hospitalization Nitro Today/Relief: no nitro taken today Aspirin Treatment Today: provided by ED Allergies/Adverse Reactions: No Known Drug Allergies Allergy (Verified 09/07/24 20:28) Home Medications: Ascorbic Acid [Vitamin C] 1 cap PO DAILY 06/04/22 [History] Calcium Citrate 1 tab PO DAILY 06/04/22 [History] Cholecalciferol (Vitamin D3) [Vitamin D] 1 cap PO DAILY 06/04/22 [History] L.acidoph,Paracasei, B.lactis [Probiotic] 1 cap PO DAILY 06/04/22 [History] ALPRAZolam [Alprazolam] 0.5 mg PO HS 09/07/24 [History] Amlodipine Besylate 5 mg [Norvasc 5 mg] 5 mg PO DAILY 09/07/24 [History] Gabapentin 100 mg PO DAILY 09/07/24 [History] Melatonin/Pyridoxine [Melatonin 5 mg Tablet] 3 mg PO HS 09/07/24 [History] Meloxicam 7.5 mg PO DAILY PRN PRN 09/07/24 [History] Polyethylene Glycol 3350 [Miralax] 0.5 packet PO DAILY 09/07/24 [History] Prednisolone Acetate/Pf [Prednisolone Acet 1% Eye Drop] 1 drop OP . EVERY OTHER DAY 09/07/24 [History] Hx Tetanus, Diphtheria Vaccination/Date Given: No Hx Influenza Vaccination/Date Given: Yes Hx Pneumococcal Vaccination/Date Given: No Travel Risk - International Travel Have you traveled outside of the country in past 3 weeks: No - Emerging Infectious Disease Are you exhibiting symptoms associated with any current EIDs: No - Review of Systems Constitutional: Fever Eyes: No Symptoms Ears, Nose, & Throat: No Symptoms Respiratory: No Symptoms Cardiac: Chest Pain Abdominal/Gastrointestinal: No Symptoms Genitourinary Symptoms: No Symptoms Musculoskeletal: No Symptoms Skin: No Symptoms Neurological: No Symptoms Psychological: No Symptoms Endocrine: No Symptoms Hematologic/Lymphatic: No Symptoms Immunological/Allergic: No Symptoms All Other Systems: Reviewed and Negative - Past Medical History Pertinent Past Medical History: Yes Neurological History: No Pertinent History ENT History: Cataracts Cardiac History: Hypertension Respiratory History: Other Endocrine Medical History: No Pertinent History Musculoskeletal History: Osteoarthritis GI Medical History: Other History: No Pertinent History Psycho-Social History: No Pertinent History Female Reproductive Disorders: No Pertinent History Other Medical History: PNEUMONIA - Past Surgical History Past Surgical History: Yes Neuro Surgical History: No Pertinent History Cardiac: No Pertinent History Respiratory: No Pertinent History Gastrointestinal: Appendectomy, Bowel Surgery, Colon Resection Genitourinary: No Pertinent History Musculoskeletal: No Pertinent History Female Surgical History: No Pertinent History Other Surgical History: cataracts removed bilateral eyes, cornea transplant bilateral eyes. 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, apendectomy for cancer - Social History Smoking Status: Never smoker Exposure to second hand smoke: No Drug Use: none Patient Lives Alone: No (lives with [facility]) - Social Determinants of Health Will the patient participate in the screening: Unable to obtain - Nursing Vital Signs Nursing Vital Signs: Initial Vital Signs Temperature 101.1 F 09/07/24 20:28 Pulse Rate 108 H 09/07/24 20:28 Respiratory Rate 14 09/07/24 20:28 Blood Pressure 206/100 09/07/24 20:28 Pain Scale Pain Intensity 0 - Physical Exam General Appearance: no apparent distress, alert, anxiety, thin Eye Exam: PERRL/EOMI, eyes nml inspection Ears, Nose, Throat Exam: normal ENT inspection, moist mucous membranes Neck Exam: normal inspection, non-tender, supple, full range of motion Respiratory Exam: normal breath sounds, lungs clear, respiratory distress, airway intact, No chest tenderness (Patient states the pain in her chest is nearly gone ) Cardiovascular Exam: tachycardia Gastrointestinal/Abdomen Exam: soft, normal bowel sounds, tenderness Pelvic Exam: not done Rectal Exam: not done Back Exam: normal inspection, normal range of motion, No CVA tenderness, No vertebral tenderness Extremity Exam: normal inspection, normal range of motion, pelvis stable Neurologic Exam: alert, oriented x 3, cooperative, latex spooler II-XII nml as tested, normal mood/affect, nml cerebellar function, nml station & gait, sensation nml Skin Exam: normal color, warm, dry Lymphatic Exam: adenopathy SpO2 Interpretation: normal O2 Delivery: Room Air - Course Nursing assessment & vital signs reviewed: Yes EKG Interpreted by Me: RATE ([id number]), Sinus Tach, NORMAL AXIS, NORMAL INTERVALS, NORMAL QRS, Other (There is left ventricular hypertrophy. No acute ischemic changes on today's twelve-lead EKG. QTc is 431. Sinus tachycardia is new when compared to 08/21/2024 EKG) Ordered Tests: Active Orders 24 hr Category Date Time Status CHEST 1 VIEW (PORTABLE) Stat Exams 09/07/24 20:31 Taken BLOOD CULTURE Stat Lab 09/07/24 21:40 Received CBC W DIFF Stat Lab 09/07/24 20:34 Completed CK-Creatinine Phosphokinase Stat Lab 09/07/24 20:34 Completed CMP Stat Lab 09/07/24 20:34 Completed MAGNESIUM Stat Lab 09/07/24 20:34 Completed MONO SCREEN Stat Lab 09/07/24 20:34 Completed NT PRO BNPII Stat Lab 09/07/24 20:34 Completed TROPONIN Q4H Lab 09/07/24 20:34 Completed TROPONIN Q4H Lab 09/08/24 00:45 Ordered TROPONIN Q4H Lab 09/08/24 04:45 Ordered UA W/RFX UR CULTURE Stat Lab 09/07/24 21:00 Completed Medication Summary Generic Name Dose Route Start Last Admin Trade Name Freq PRN Reason Stop Dose Admin Ceftriaxone Sodium 1 gm in 100 mls @ 200 mls/hr 09/07/24 23:30 09/07/24 23:46 Rocephin 1 Gm / 100 Ml Nacl IV 09/07/24 23:59 200 mls/hr STAT ONE 200 mls/hr Administration Discontinued Medications Generic Name Dose Route Start Last Admin Trade Name Adali PRN Reason Stop Dose Admin Acetaminophen 650 mg 09/07/24 21:22 09/07/24 21:26 Acetaminophen 325 Mg Tablet PO 09/07/24 21:23 650 mg STAT STA Administration Acetaminophen Confirm 09/07/24 21:24 Acetaminophen 325 Mg Tablet Administered 09/07/24 21:25 Dose 650 mg .ROUTE .STK-MED ONE Aspirin 324 mg 09/07/24 20:31 09/07/24 20:44 Aspirin 81 Mg Tab.Chew PO 09/07/24 20:32 243 mg STAT ONE Administration Aspirin Confirm 09/07/24 20:44 Aspirin 81 Mg Tab.Chew Administered 09/07/24 20:45 Dose 243 mg .ROUTE .STK-MED ONE Ceftriaxone Sodium Confirm 09/07/24 23:42 Rocephin 1 Gm / 100 Ml Nacl Administered 09/07/24 23:43 Dose 1 gm in 100 mls @ ud IV .STK-MED ONE Lab/Rad Data: Laboratory Result Diagrams 09/07/24 20:34 09/07/24 20:34 Laboratory Results 09/07/24 09/07/24 09/07/24 Range/Units 21:00 21:00 21:00 WBC (3.98-10.04) x10^3/uL RBC (3.93-5.22) x10^6/uL Hgb (11.2-15.7) g/dL Hct (34.1-44.9) % MCV (79.4-94.8) fL MCH (25.6-32.2) pg MCHC (32.2-35.5) g/dL RDW (11.7-14.4) % Plt Count (182-369) x10^3/uL MPV (9.4-12.3) fL Gran % (34.0-71.1) % Immature Gran % (Auto) (0.001-0.429) % Nucleat RBC Rel Count (0.00-0.2) % Eos # (Auto) (0.04-0.36) x10^3/uL Immature Gran # (Auto) (0.001-0.031) x10^3u/L Absolute Lymphs (auto) (1.18-3.74) x10^3/uL Absolute Monos (auto) (0.24-0.86) x10^3/uL Absolute Nucleated RBC (0.00-0.012) x10^3u/L Lymphocytes % (19.3-51.7) % Monocytes % (4.7-12.5) % Eosinophils % (0.7-5.8) % Basophils % (0.1-1.2) % Absolute Granulocytes (1.56-6.13) x10^3/uL Basophils # (0.01-0.08) x10^3/uL Sodium (135-145) mmol/L Potassium (3.5-5.1) mmol/L Chloride (98-107) mmol/L Carbon Dioxide (22-30) mmol/L Anion Gap (5-15) MEQ/L BUN (7-17) mg/dL Creatinine (0.52-1.04) mg/dL Estimated GFR ML/MIN Glucose (74-106) mg/dL Calcium (8.4-10.2) mg/dL Magnesium (1.6-2.3) mg/dL Total Bilirubin (0.2-1.3) mg/dL AST (14-36) U/L ALT (0-35) U/L Alkaline Phosphatase (38-126) U/L Creatine Kinase (30-135) U/L Troponin I (0.000-0.033) ng/mL NT-Pro-B Natriuret Pep (<300) pg/mL Serum Total Protein (6.3-8.2) g/dL Albumin (3.5-5.0) g/dL Urine Color Yellow (Yellow) Urine Appearance Clear (Clear) Urine pH 7.0 (4.6-8.0) Ur Specific [place] 1.015 (1.005-1.030) Urine Protein Negative (Negative) Urine Glucose (UA) 250 A (Negative) mg/dL Urine Ketones Negative (Negative) Urine Blood Negative (Negative) Urine Nitrite Negative (Negative) Urine Bilirubin Negative (Negative) Urine Urobilinogen 0.2 (0.2) mg/dL Ur Leukocyte Esterase Negative (Negative) U Hyaline Cast (Auto) NONE SEEN (0-2) /LPF Urine Microscopic RBC 0-2 (0-5) /HPF Urine Microscopic WBC 0-2 (0-5) /HPF Ur Epithelial Cells None Seen (None Seen) /HPF Urine Bacteria None Seen (None Seen) /HPF Waxy Casts (Auto) NO (None Seen) /LPF Urine Culture Reflexed NO (NO) Monoscreen (NEGATIVE) Influenza Type A Ag NEGATIVE (NEGATIVE) Influenza Type B Ag NEGATIVE (NEGATIVE) RSV (PCR) NEGATIVE (NEGATIVE) SARS-CoV-2 (PCR) NEGATIVE (NEGATIVE) Group A Strep Antibody NOT DETECTED (NEGATIVE) 09/07/24 09/07/24 09/07/24 Range/Units 20:34 20:34 20:34 WBC (3.98-10.04) x10^3/uL RBC (3.93-5.22) x10^6/uL Hgb (11.2-15.7) g/dL Hct (34.1-44.9) % MCV (79.4-94.8) fL MCH (25.6-32.2) pg MCHC (32.2-35.5) g/dL RDW (11.7-14.4) % Plt Count (182-369) x10^3/uL MPV (9.4-12.3) fL Gran % (34.0-71.1) % Immature Gran % (Auto) (0.001-0.429) % Nucleat RBC Rel Count (0.00-0.2) % Eos # (Auto) (0.04-0.36) x10^3/uL Immature Gran # (Auto) (0.001-0.031) x10^3u/L Absolute Lymphs (auto) (1.18-3.74) x10^3/uL Absolute Monos (auto) (0.24-0.86) x10^3/uL Absolute Nucleated RBC (0.00-0.012) x10^3u/L Lymphocytes % (19.3-51.7) % Monocytes % (4.7-12.5) % Eosinophils % (0.7-5.8) % Basophils % (0.1-1.2) % Absolute Granulocytes (1.56-6.13) x10^3/uL Basophils # (0.01-0.08) x10^3/uL Sodium 140 (135-145) mmol/L Potassium 4.2 (3.5-5.1) mmol/L Chloride 100 (98-107) mmol/L Carbon Dioxide 31 H (22-30) mmol/L Anion Gap 13.9 (5-15) MEQ/L BUN 25 H (7-17) mg/dL Creatinine 0.86 (0.52-1.04) mg/dL Estimated GFR 64.5 ML/MIN Glucose 203 H (74-106) mg/dL Calcium 10.0 (8.4-10.2) mg/dL Magnesium 2.4 H (1.6-2.3) mg/dL Total Bilirubin 0.50 (0.2-1.3) mg/dL AST 34 (14-36) U/L ALT 22 (0-35) U/L Alkaline Phosphatase 109 (38-126) U/L Creatine Kinase 51 (30-135) U/L Troponin I < 0.012 (0.000-0.033) ng/mL NT-Pro-B Natriuret Pep 527 (<300) pg/mL Serum Total Protein 7.6 (6.3-8.2) g/dL Albumin 4.6 (3.5-5.0) g/dL Urine Color (Yellow) Urine Appearance (Clear) Urine pH (4.6-8.0) Ur Specific [place] (1.005-1.030) Urine Protein (Negative) Urine Glucose (UA) (Negative) mg/dL Urine Ketones (Negative) Urine Blood (Negative) Urine Nitrite (Negative) Urine Bilirubin (Negative) Urine Urobilinogen (0.2) mg/dL Ur Leukocyte Esterase (Negative) U Hyaline Cast (Auto) (0-2) /LPF Urine Microscopic RBC (0-5) /HPF Urine Microscopic WBC (0-5) /HPF Ur Epithelial Cells (None Seen) /HPF Urine Bacteria (None Seen) /HPF Waxy Casts (Auto) (None Seen) /LPF Urine Culture Reflexed (NO) Monoscreen NEGATIVE (NEGATIVE) Influenza Type A Ag (NEGATIVE) Influenza Type B Ag (NEGATIVE) RSV (PCR) (NEGATIVE) SARS-CoV-2 (PCR) (NEGATIVE) Group A Strep Antibody (NEGATIVE) 09/07/24 Range/Units 20:34 WBC 15.7 H (3.98-10.04) x10^3/uL RBC 4.35 (3.93-5.22) x10^6/uL Hgb 12.8 (11.2-15.7) g/dL Hct 39.5 (34.1-44.9) % MCV 90.8 (79.4-94.8) fL MCH 29.4 (25.6-32.2) pg MCHC 32.4 (32.2-35.5) g/dL RDW 13.2 (11.7-14.4) % Plt Count 391 H (182-369) x10^3/uL MPV 10.4 (9.4-12.3) fL Gran % 82.7 H (34.0-71.1) % Immature Gran % (Auto) 0.3 (0.001-0.429) % Nucleat RBC Rel Count 0.0 (0.00-0.2) % Eos # (Auto) 0.32 (0.04-0.36) x10^3/uL Immature Gran # (Auto) 0.05 H (0.001-0.031) x10^3u/L Absolute Lymphs (auto) 1.47 (1.18-3.74) x10^3/uL Absolute Monos (auto) 0.80 (0.24-0.86) x10^3/uL Absolute Nucleated RBC 0.00 (0.00-0.012) x10^3u/L Lymphocytes % 9.3 L (19.3-51.7) % Monocytes % 5.1 (4.7-12.5) % Eosinophils % 2.0 (0.7-5.8) % Basophils % 0.6 (0.1-1.2) % Absolute Granulocytes 12.99 H (1.56-6.13) x10^3/uL Basophils # 0.10 H (0.01-0.08) x10^3/uL Sodium (135-145) mmol/L Potassium (3.5-5.1) mmol/L Chloride (98-107) mmol/L Carbon Dioxide (22-30) mmol/L Anion Gap (5-15) MEQ/L BUN (7-17) mg/dL Creatinine (0.52-1.04) mg/dL Estimated GFR ML/MIN Glucose (74-106) mg/dL Calcium (8.4-10.2) mg/dL Magnesium (1.6-2.3) mg/dL Total Bilirubin (0.2-1.3) mg/dL AST (14-36) U/L ALT (0-35) U/L Alkaline Phosphatase (38-126) U/L Creatine Kinase (30-135) U/L Troponin I (0.000-0.033) ng/mL NT-Pro-B Natriuret Pep (<300) pg/mL Serum Total Protein (6.3-8.2) g/dL Albumin (3.5-5.0) g/dL Urine Color (Yellow) Urine Appearance (Clear) Urine pH (4.6-8.0) Ur Specific [place] (1.005-1.030) Urine Protein (Negative) Urine Glucose (UA) (Negative) mg/dL Urine Ketones (Negative) Urine Blood (Negative) Urine Nitrite (Negative) Urine Bilirubin (Negative) Urine Urobilinogen (0.2) mg/dL Ur Leukocyte Esterase (Negative) U Hyaline Cast (Auto) (0-2) /LPF Urine Microscopic RBC (0-5) /HPF Urine Microscopic WBC (0-5) /HPF Ur Epithelial Cells (None Seen) /HPF Urine Bacteria (None Seen) /HPF Waxy Casts (Auto) (None Seen) /LPF Urine Culture Reflexed (NO) Monoscreen (NEGATIVE) Influenza Type A Ag (NEGATIVE) Influenza Type B Ag (NEGATIVE) RSV (PCR) (NEGATIVE) SARS-CoV-2 (PCR) (NEGATIVE) Group A Strep Antibody (NEGATIVE) - Progress Progress: improved, re-examined Air Movement: good Progress Note: 09/07/24 20:34 My medical decision making and the assignment of moderate complexity is based on review of the patient's past medical history, review of the patient's medication list, review the patient drug allergy list, history present illness and physical findings on examination. The workup in this patient includes placement of intravenous line, twelve-lead EKG, troponin level, CK level, BNP, magnesium level, CBC, CMP, chest x-ray. I also ordered blood cultures, group A strep, monotest, viral swabs Differential diagnosis includes but is not limited to acute cardiopulmonary process, CHF exacerbation, myocardial infarction, electrolyte abnormalities, arrhythmia viral illness, pneumonia, upper respiratory infection 09/07/24 23:52 I interpreted the patient's laboratory data results. Based on laboratory data results, patient does have a leukocytosis. I interpreted the patient's preliminary chest x-ray. Patient has a right mid to lower lobe pneumonia/infiltrate 09/07/24 23:[address] Morelos, the telehospitalist on at this time. I reviewed the patient past medical history, presenting complaint, physical exam findings, workup per performed and its results, and the patient's response to our intervention. Patient has a community-acquired pneumonia. She is 89 years of age. We will place her in observation. Dr. Morelos agrees. We will provide the patient with Rocephin and azithromycin intravenously and continue with serial troponin levels. Blood Culture(s) Obtained: Yes Antibiotics given: Yes Discussed with : Genet Counseled pt/family regarding: lab results, diagnosis, rad results Medical Desision Making - Independent Historian Additional History obtained from: Family - Diagnostic Testing Diagnostic test were ordered, analyzed, and reviewed by me: Yes Radiological Interpretation: Interpreted by me, Teleradiologist Report - Risk of complications The pt has a high risk of morbidity or mortality based on: Decision regarding hospitilization or escalation of hosp level of care - Departure Departure Disposition: Observation Clinical Impression: Fever, Community acquired pneumonia, Chest pain Condition: Fair Critical Care Time: No Referrals: FRANTZ SPENCER MD [Primary Care Provider] - Follow up/PCP as directed
[2024-09-07 20:40] LABS: Absolute Neutrophil Ct (ANC) 12.99 x10^3/uL (1.56-6.13); BASOPHIL % 0.6 % (0.1-1.2); Eosinophil (Absolute #) 0.32 x10^3/uL (0.04-0.36); Hematocrit 39.5 % (34.1-44.9); Hemoglobin 12.8 g/dL (11.2-15.7); IMMATURE GRAN # 0.05 x10^3u/L (0.001-0.031); IMMATURE GRAN % 0.3 % (0.001-0.429); Lymphocyte (Absolute #) 1.47 x10^3/uL (1.18-3.74); Lymphocytes % 9.3 % (19.3-51.7); Mean Cell Volume 90.8 fL (79.4-94.8); Mean Corpuscular Hemoglobin 29.4 pg (25.6-32.2); Mean Corpuscular Hgb Concent. 32.4 g/dL (32.2-35.5); Mean Platelet Volume 10.4 fL (9.4-12.3); Monocytes % 5.1 % (4.7-12.5); Neutrophil % 82.7 % (34.0-71.1); Platelet Count 391 x10^3/uL (182-369); Red Blood Count 4.35 x10^6/uL (3.93-5.22); Red Cell Distribution Width 13.2 % (11.7-14.4); White Blood Count 15.7 x10^3/uL (3.98-10.04)
[2024-09-07] MEDS: BABY ASPIRIN 81 MG CHEW PO ONE (20:44)
[2024-09-07] MEDS ORDERED: BABY ASPIRIN 81 MG CHEW ONE (20:44)
[2024-09-07 21:04] LABS: ALBUMIN 4.6 g/dL (3.5-5.0); ANION GAP 13.9 MEQ/L (5-15); BILIRUBIN,TOTAL 0.5 mg/dL (0.2-1.3); Creatinine 1 0.86 mg/dL (0.52-1.04); EST GLOMERULAR FILTRATION RATE 64.5 ML/MIN; MAGNESIUM 2.4 mg/dL (1.6-2.3); Potassium 4.2 mmol/L (3.5-5.1); Total Protein 7.6 g/dL (6.3-8.2)
[2024-09-07] MEDS ORDERED: TYLENOL 325 MG ONE (21:24)
[2024-09-07] MEDS: TYLENOL 325 MG PO STA (21:26)
[2024-09-07 21:35] LABS: Appearance Clear (Clear); Bacteria None Seen /HPF (None Seen); Bilirubin Negative (Negative); Blood Negative (Negative); Epithelial Cells None Seen /HPF (None Seen); Glucose, Urine 250 mg/dL (Negative); Hyaline Casts NONE SEEN /LPF (0-2); Ketones Negative (Negative); Leukocyte Esterase Negative (Negative); Nitrite Negative (Negative); Protein,Urine Dip Negative (Negative); RBC 0-2 /HPF (0-5); Specific Gravity 1.015 (1.005-1.030); Urobilinogen 0.2 mg/dL (0.2); WBC 0-2 /HPF (0-5)
[2024-09-07 21:49] LABS: Waxy Casts,Urine NO /LPF (None Seen)
[2024-09-07 22:06] LABS: INFLUENZA A NEGATIVE (NEGATIVE); INFLUENZA B NEGATIVE (NEGATIVE); RESPIRATORY SYNCTIAL VIRUS NEGATIVE (NEGATIVE); SARS-CoV-2 Xpert Express NEGATIVE (NEGATIVE)
[2024-09-07] MEDS ORDERED: ROCEPHIN 1 GM / 100 ML NaCl 1 GM/100 ML IVPB IV ONE (23:42)
[2024-09-07] MEDS: ROCEPHIN 1 GM / 100 ML NaCl 1 GM/100 ML IVPB IV ONE (23:46)
[2024-09-08] MEDS ORDERED: xanAX 0.5 MG ONE (00:25)
[2024-09-08] MEDS: xanAX 0.5 MG PO ONE (00:27)
[2024-09-08] MEDS ORDERED: Neurontin ONE (00:28)
[2024-09-08] MEDS: Neurontin PO SCH ×2 (00:30→09:10)
[2024-09-08] MEDS: MELATONIN PO ONE (00:30)
[2024-09-08] MEDS ORDERED: TYLENOL 325 MG PO PRN (00:37)
[2024-09-08] MEDS ORDERED: Zofran 4 MG/2 ML VIAL IV PRN (00:37)
[2024-09-08] MEDS ORDERED: MELOXICAM PO PRN (01:21)
[2024-09-08] MEDS ORDERED: HUMALOG SQ PRN (01:23)
[2024-09-08] MEDS ORDERED: NON-FORMULARY ITEM (Prednisolone Acetate/Pf [Prednisolone Acet 1% Eye Drop] 5 ML Drops.Sus OP SCH (01:30)
[2024-09-08] MEDS ORDERED: PROVENTIL 2.5 MG/3 ML NEB IH PRN (01:44)
[2024-09-08] MEDS: Sodium Chloride 0.9% 1000 ML 1,000 ML IV SCH (02:06)
--- NOTE | 2024-09-08 02:19 | PCM.HP ---
History of Present Illness - Chief Complaint Chief Complaint: pneumonia Date: 09/07/24 History of Present Illness: is a 89 year old female with a history of chest pain (recently evaluated on 08/21/24 at [facility] for a rule-out DE; follows with Dr. Mariajose franks), HTN and arthritis, who presented to the ED with fever (101 F) and chest discomfort. The patient denies hemoptysis, diarrhea, or dysuria. In the ED the patient was noted to have right sided infiltrate concerning for pneumonia and antibiotics were initiated. At the time of my evaluation, the patient says that she feels better. She has not had significant wheezing, but she does use albuterol daily in general. - Review of Systems Constitutional: Fever Eyes: No Symptoms Ears, Nose, & Throat: No Symptoms Respiratory: No Symptoms Cardiac: Chest Pain Abdominal/Gastrointestinal: No Symptoms Genitourinary Symptoms: No Symptoms Musculoskeletal: No Symptoms Skin: No Symptoms Neurological: No Symptoms Psychological: No Symptoms Endocrine: No Symptoms Hematologic/Lymphatic: No Symptoms Immunological/Allergic: No Symptoms All Other Systems: Reviewed and Negative Medications & Allergies Home Medications: Home Medication List Ascorbic Acid [Vitamin C] 1 cap PO DAILY 06/04/22 [History Confirmed 09/08/24] Calcium Citrate 1 tab PO DAILY 06/04/22 [History Confirmed 09/08/24] Cholecalciferol (Vitamin D3) [Vitamin D] 1 cap PO DAILY 06/04/22 [History Confirmed 09/08/24] L.acidoph,Paracasei, B.lactis [Probiotic] 1 cap PO DAILY 06/04/22 [History Confirmed 09/08/24] ALPRAZolam [Alprazolam] 0.5 mg PO HS 09/07/24 [History Confirmed 09/08/24] Amlodipine Besylate 5 mg [Norvasc 5 mg] 5 mg PO DAILY 09/07/24 [History Confirmed 09/08/24] Gabapentin 100 mg PO TID 09/07/24 [History Confirmed 09/08/24] Melatonin/Pyridoxine [Melatonin 5 mg Tablet] 3 mg PO HS 09/07/24 [History Confirmed 09/08/24] Meloxicam 7.5 mg PO DAILY PRN PRN 09/07/24 [History Confirmed 09/08/24] Polyethylene Glycol 3350 [Miralax] 0.5 packet PO DAILY 09/07/24 [History Confirmed 09/08/24] Prednisolone Acetate/Pf [Prednisolone Acet 1% Eye Drop] 1 drop OP . EVERY OTHER DAY 09/07/24 [History Confirmed 09/08/24] Gabapentin 200 mg PO HS 09/08/24 [History Confirmed 09/08/24] Allergies/Adverse Reactions: Allergies Allergy/AdvReac Type Severity Reaction Status Date / Time No Known Drug Allergies Allergy Verified 09/07/24 20:28 - Past Medical History Past Medical History: Yes Neurological History: No Pertinent History ENT History: Cataracts, Other Cardiac History: Hypertension Respiratory History: Pneumonia Endocrine Medical History: No Pertinent History Musculoskelatal History: Osteoarthritis GI Medical History: Other History: No Pertinent History Pyscho-Social History: No Pertinent History Reproductive Disorders: Other Comment: PNEUMONIA, cornea transplants, R lumpectomy, colon resection - Past Surgical History Past Surgical History: Yes Neuro Surgical History: No Pertinent History Cardiac History: Other Respiratory Surgery: No Pertinent History GI Surgical History: Appendectomy, Bowel Surgery, Colon Resection Genitourinary Surgical Hx: No Pertinent History Musculskeletal Surgical Hx: Joint Replacement Female Surgical History: Lumpectomy Other Surgical History: cataracts removed bilateral eyes, cornea transplant bilateral eyes. 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, apendectomy for cancer, pericardial window sx, L hip replacement Significant Family History: no pertinent family hx - Social History Smoking Status: Never smoker Exposure to second hand smoke: Yes Alcohol: None Drug Use: none - Social Determinants of Health Will the patient participate in the screening: Yes Do you worry about a steady place to live?: No Do you have any problems with any of the following?: No known problems In the past 12 months,have you had to go without utilities?: No Have you or anyone in your house had to go without enough: No Transportation Issues: No Has anyone in your support network made you feel unsafe?: No Does the patient want assistance with any of the above?: No - Physical Exam Vital Signs: Vital Signs - 24 hr Temp Pulse Resp BP BP Pulse Ox 09/08/24 01:43 86 18 91 L 09/08/24 00:37 97.8 F 82 18 145/65 90 L 09/08/24 00:20 94 H 23 145/60 93 L 09/08/24 00:10 89 32 H 161/71 93 L 09/08/24 00:02 90 26 H 162/65 94 L 09/08/24 00:01 93 L 09/07/24 23:10 99 H 34 H 165/68 92 L 09/07/24 23:00 99 H 31 H 176/65 92 L 09/07/24 22:50 103 H 26 H 155/64 92 L 09/07/24 22:40 98 H 34 H 161/68 91 L 09/07/24 22:30 101 H 42 H 167/69 91 L 09/07/24 22:20 101 H 38 H 153/79 91 L 09/07/24 22:10 101 H 29 H 165/74 92 L 09/07/24 22:00 101 H 25 H 172/68 91 L 09/07/24 21:50 104 H 29 H 175/77 91 L 09/07/24 21:40 105 H 26 H 181/76 92 L 09/07/24 21:30 107 H 26 H 182/87 93 L 09/07/24 21:20 97 H 35 H 176/81 94 L 09/07/24 21:10 96 H 39 H 165/92 94 L 09/07/24 21:00 100 H 30 H 194/81 96 09/07/24 20:50 107 H 34 H 186/87 93 L 09/07/24 20:45 102 H 37 H 185/98 94 L 09/07/24 20:32 106 H 38 H 206/100 94 L 09/07/24 20:28 101.1 F 108 H 14 206/100 General Appearance: no apparent distress, alert Neurologic Exam: alert, oriented x 3, cooperative, hair blender II-XII nml as tested, normal mood/affect, nml cerebellar function Eye Exam: PERRL/EOMI, eyes nml inspection Ears, Nose, Throat Exam: normal ENT inspection Neck Exam: normal inspection, non-tender, supple, full range of motion Respiratory Exam: airway intact, rhonchi (on right side) Cardiovascular Exam: regular rate/rhythm, tachycardia Gastrointestinal/Abdomen Exam: soft, normal bowel sounds Back Exam: normal range of motion Extremity Exam: normal inspection, normal range of motion Skin Exam: normal color Results - Labs Lab/Micro Results: Lab Results-Last 24 Hours 09/07/24 09/07/24 09/07/24 Range/Units 20:34 20:34 20:34 WBC 15.7 H (3.98-10.04) x10^3/uL RBC 4.35 (3.93-5.22) x10^6/uL Hgb 12.8 (11.2-15.7) g/dL Hct 39.5 (34.1-44.9) % MCV 90.8 (79.4-94.8) fL MCH 29.4 (25.6-32.2) pg MCHC 32.4 (32.2-35.5) g/dL RDW 13.2 (11.7-14.4) % Plt Count 391 H (182-369) x10^3/uL MPV 10.4 (9.4-12.3) fL Gran % 82.7 H (34.0-71.1) % Immature Gran % (Auto) 0.3 (0.001-0.429) % Nucleat RBC Rel Count 0.0 (0.00-0.2) % Eos # (Auto) 0.32 (0.04-0.36) x10^3/uL Immature Gran # (Auto) 0.05 H (0.001-0.031) x10^3u/L Absolute Lymphs (auto) 1.47 (1.18-3.74) x10^3/uL Absolute Monos (auto) 0.80 (0.24-0.86) x10^3/uL Absolute Nucleated RBC 0.00 (0.00-0.012) x10^3u/L Lymphocytes % 9.3 L (19.3-51.7) % Monocytes % 5.1 (4.7-12.5) % Eosinophils % 2.0 (0.7-5.8) % Basophils % 0.6 (0.1-1.2) % Absolute Granulocytes 12.99 H (1.56-6.13) x10^3/uL Basophils # 0.10 H (0.01-0.08) x10^3/uL Sodium 140 (135-145) mmol/L Potassium 4.2 (3.5-5.1) mmol/L Chloride 100 (98-107) mmol/L Carbon Dioxide 31 H (22-30) mmol/L Anion Gap 13.9 (5-15) MEQ/L BUN 25 H (7-17) mg/dL Creatinine 0.86 (0.52-1.04) mg/dL Estimated GFR 64.5 ML/MIN Glucose 203 H (74-106) mg/dL Calcium 10.0 (8.4-10.2) mg/dL Magnesium 2.4 H (1.6-2.3) mg/dL Total Bilirubin 0.50 (0.2-1.3) mg/dL AST 34 (14-36) U/L ALT 22 (0-35) U/L Alkaline Phosphatase 109 (38-126) U/L Creatine Kinase 51 (30-135) U/L Troponin I < 0.012 (0.000-0.033) ng/mL NT-Pro-B Natriuret Pep 527 (<300) pg/mL Serum Total Protein 7.6 (6.3-8.2) g/dL Albumin 4.6 (3.5-5.0) g/dL Urine Color (Yellow) Urine Appearance (Clear) Urine pH (4.6-8.0) Ur Specific [place] (1.005-1.030) Urine Protein (Negative) Urine Glucose (UA) (Negative) mg/dL Urine Ketones (Negative) Urine Blood (Negative) Urine Nitrite (Negative) Urine Bilirubin (Negative) Urine Urobilinogen (0.2) mg/dL Ur Leukocyte Esterase (Negative) U Hyaline Cast (Auto) (0-2) /LPF Urine Microscopic RBC (0-5) /HPF Urine Microscopic WBC (0-5) /HPF Ur Epithelial Cells (None Seen) /HPF Urine Bacteria (None Seen) /HPF Waxy Casts (Auto) (None Seen) /LPF Urine Culture Reflexed (NO) Monoscreen (NEGATIVE) Influenza Type A Ag (NEGATIVE) Influenza Type B Ag (NEGATIVE) RSV (PCR) (NEGATIVE) SARS-CoV-2 (PCR) (NEGATIVE) Group A Strep Antibody (NEGATIVE) 09/07/24 09/07/24 09/07/24 Range/Units 20:34 21:00 21:00 WBC (3.98-10.04) x10^3/uL RBC (3.93-5.22) x10^6/uL Hgb (11.2-15.7) g/dL Hct (34.1-44.9) % MCV (79.4-94.8) fL MCH (25.6-32.2) pg MCHC (32.2-35.5) g/dL RDW (11.7-14.4) % Plt Count (182-369) x10^3/uL MPV (9.4-12.3) fL Gran % (34.0-71.1) % Immature Gran % (Auto) (0.001-0.429) % Nucleat RBC Rel Count (0.00-0.2) % Eos # (Auto) (0.04-0.36) x10^3/uL Immature Gran # (Auto) (0.001-0.031) x10^3u/L Absolute Lymphs (auto) (1.18-3.74) x10^3/uL Absolute Monos (auto) (0.24-0.86) x10^3/uL Absolute Nucleated RBC (0.00-0.012) x10^3u/L Lymphocytes % (19.3-51.7) % Monocytes % (4.7-12.5) % Eosinophils % (0.7-5.8) % Basophils % (0.1-1.2) % Absolute Granulocytes (1.56-6.13) x10^3/uL Basophils # (0.01-0.08) x10^3/uL Sodium (135-145) mmol/L Potassium (3.5-5.1) mmol/L Chloride (98-107) mmol/L Carbon Dioxide (22-30) mmol/L Anion Gap (5-15) MEQ/L BUN (7-17) mg/dL Creatinine (0.52-1.04) mg/dL Estimated GFR ML/MIN Glucose (74-106) mg/dL Calcium (8.4-10.2) mg/dL Magnesium (1.6-2.3) mg/dL Total Bilirubin (0.2-1.3) mg/dL AST (14-36) U/L ALT (0-35) U/L Alkaline Phosphatase (38-126) U/L Creatine Kinase (30-135) U/L Troponin I (0.000-0.033) ng/mL NT-Pro-B Natriuret Pep (<300) pg/mL Serum Total Protein (6.3-8.2) g/dL Albumin (3.5-5.0) g/dL Urine Color Yellow (Yellow) Urine Appearance Clear (Clear) Urine pH 7.0 (4.6-8.0) Ur Specific [place] 1.015 (1.005-1.030) Urine Protein Negative (Negative) Urine Glucose (UA) 250 A (Negative) mg/dL Urine Ketones Negative (Negative) Urine Blood Negative (Negative) Urine Nitrite Negative (Negative) Urine Bilirubin Negative (Negative) Urine Urobilinogen 0.2 (0.2) mg/dL Ur Leukocyte Esterase Negative (Negative) U Hyaline Cast (Auto) NONE SEEN (0-2) /LPF Urine Microscopic RBC 0-2 (0-5) /HPF Urine Microscopic WBC 0-2 (0-5) /HPF Ur Epithelial Cells None Seen (None Seen) /HPF Urine Bacteria None Seen (None Seen) /HPF Waxy Casts (Auto) NO (None Seen) /LPF Urine Culture Reflexed NO (NO) Monoscreen NEGATIVE (NEGATIVE) Influenza Type A Ag (NEGATIVE) Influenza Type B Ag (NEGATIVE) RSV (PCR) (NEGATIVE) SARS-CoV-2 (PCR) (NEGATIVE) Group A Strep Antibody NOT DETECTED (NEGATIVE) 09/07/24 09/08/24 Range/Units 21:00 00:15 WBC (3.98-10.04) x10^3/uL RBC (3.93-5.22) x10^6/uL Hgb (11.2-15.7) g/dL Hct (34.1-44.9) % MCV (79.4-94.8) fL MCH (25.6-32.2) pg MCHC (32.2-35.5) g/dL RDW (11.7-14.4) % Plt Count (182-369) x10^3/uL MPV (9.4-12.3) fL Gran % (34.0-71.1) % Immature Gran % (Auto) (0.001-0.429) % Nucleat RBC Rel Count (0.00-0.2) % Eos # (Auto) (0.04-0.36) x10^3/uL Immature Gran # (Auto) (0.001-0.031) x10^3u/L Absolute Lymphs (auto) (1.18-3.74) x10^3/uL Absolute Monos (auto) (0.24-0.86) x10^3/uL Absolute Nucleated RBC (0.00-0.012) x10^3u/L Lymphocytes % (19.3-51.7) % Monocytes % (4.7-12.5) % Eosinophils % (0.7-5.8) % Basophils % (0.1-1.2) % Absolute Granulocytes (1.56-6.13) x10^3/uL Basophils # (0.01-0.08) x10^3/uL Sodium (135-145) mmol/L Potassium (3.5-5.1) mmol/L Chloride (98-107) mmol/L Carbon Dioxide (22-30) mmol/L Anion Gap (5-15) MEQ/L BUN (7-17) mg/dL Creatinine (0.52-1.04) mg/dL Estimated GFR ML/MIN Glucose (74-106) mg/dL Calcium (8.4-10.2) mg/dL Magnesium (1.6-2.3) mg/dL Total Bilirubin (0.2-1.3) mg/dL AST (14-36) U/L ALT (0-35) U/L Alkaline Phosphatase (38-126) U/L Creatine Kinase (30-135) U/L Troponin I < 0.012 (0.000-0.033) ng/mL NT-Pro-B Natriuret Pep (<300) pg/mL Serum Total Protein (6.3-8.2) g/dL Albumin (3.5-5.0) g/dL Urine Color (Yellow) Urine Appearance (Clear) Urine pH (4.6-8.0) Ur Specific [place] (1.005-1.030) Urine Protein (Negative) Urine Glucose (UA) (Negative) mg/dL Urine Ketones (Negative) Urine Blood (Negative) Urine Nitrite (Negative) Urine Bilirubin (Negative) Urine Urobilinogen (0.2) mg/dL Ur Leukocyte Esterase (Negative) U Hyaline Cast (Auto) (0-2) /LPF Urine Microscopic RBC (0-5) /HPF Urine Microscopic WBC (0-5) /HPF Ur Epithelial Cells (None Seen) /HPF Urine Bacteria (None Seen) /HPF Waxy Casts (Auto) (None Seen) /LPF Urine Culture Reflexed (NO) Monoscreen (NEGATIVE) Influenza Type A Ag NEGATIVE (NEGATIVE) Influenza Type B Ag NEGATIVE (NEGATIVE) RSV (PCR) NEGATIVE (NEGATIVE) SARS-CoV-2 (PCR) NEGATIVE (NEGATIVE) Group A Strep Antibody (NEGATIVE) - Radiology Impressions Radiology Exams & Impressions: Radiology Procedures Category Date Time Status CHEST 1 VIEW (PORTABLE) Stat Exams 09/07/24 20:31 Taken - Other Procedures and Tests Respiratory Therapy 09/08/24 00:37 EKG REPEAT IN AM Assessment/Plan (1) Community acquired pneumonia Current Visit: Yes Status: Acute Assessment & Plan: IV antibiotics. Follow cultures and clinical course. ST eval to rule out occult dysphagia. Code(s): J18.9 - PNEUMONIA, UNSPECIFIED ORGANISM (2) Hypoxia Current Visit: No Status: Acute Assessment & Plan: Wean O2 as tolerated. Code(s): R09.02 - HYPOXEMIA (3) Leukocytosis Current Visit: No Status: Acute Assessment & Plan: Trend WBC. Code(s): D72.829 - ELEVATED WHITE BLOOD CELL COUNT, UNSPECIFIED (4) Chest pain Current Visit: Yes Status: Acute Assessment & Plan: Monitor on tele. Recently ruled out for DE. Follows with Dr. Whitney Code(s): R07.9 - CHEST PAIN, UNSPECIFIED (5) Hypertension Current Visit: No Status: Acute Assessment & Plan: Follow BP on home regimen. Code(s): I10 - ESSENTIAL (PRIMARY) HYPERTENSION Telemedicine Encounter - Telemedicine Encounter Telemedicine Encounter: "The entirety of this encounter was performed via Telemedicine" This visit was performed using real-time audio and video connection between my location and thepatients locationwith the assistance of a surrogateat the patients location. Written or verbal consent was obtained from the patient/guardian to perform this visit us[employer]telemedicine technology. Any patient questions regarding the telemedicine interaction were answered. Please note that this admission required 42 minutes to complete.
[2024-09-08 04:55] LABS: Absolute Neutrophil Ct (ANC) 9.48 x10^3/uL (1.56-6.13); BASOPHIL % 0.5 % (0.1-1.2); Basophil (Absolute #) 0.06 x10^3/uL (0.01-0.08); Eosinophil % 1.7 % (0.7-5.8); Hematocrit 35.6 % (34.1-44.9); Hemoglobin 11.2 g/dL (11.2-15.7); IMMATURE GRAN # 0.04 x10^3u/L (0.001-0.031); IMMATURE GRAN % 0.3 % (0.001-0.429); Lymphocytes % 10.8 % (19.3-51.7); Mean Cell Volume 90.6 fL (79.4-94.8); Mean Corpuscular Hemoglobin 28.5 pg (25.6-32.2); Mean Corpuscular Hgb Concent. 31.5 g/dL (32.2-35.5); Mean Platelet Volume 10.5 fL (9.4-12.3); Monocyte (Absolute #) 1.01 x10^3/uL (0.24-0.86); Monocytes % 8.4 % (4.7-12.5); Neutrophil % 78.3 % (34.0-71.1); Platelet Count 305 x10^3/uL (182-369); Red Blood Count 3.93 x10^6/uL (3.93-5.22); Red Cell Distribution Width 13.3 % (11.7-14.4); White Blood Count 12.1 x10^3/uL (3.98-10.04)
[2024-09-08 05:23] LABS: ALBUMIN 3.2 g/dL (3.5-5.0); ANION GAP 11.3 MEQ/L (5-15); BILIRUBIN,TOTAL 0.6 mg/dL (0.2-1.3); Creatinine 1 0.61 mg/dL (0.52-1.04); EST GLOMERULAR FILTRATION RATE 85.4 ML/MIN; Total Protein 5.6 g/dL (6.3-8.2)
[2024-09-08] MEDS ORDERED: MEDICATION INTERVENTION MC SCH (08:00)
--- NOTE | 2024-09-08 08:40 | XRAY ---
Indication: Chest pain. Comparison: March 13, 2023 Portable chest again hyperinflated with tiny right base calcified granuloma. No focal infiltrate, consolidation, or large effusion. Heart borderline enlarged. Bony thorax intact again with osteopenia, degenerative changes, and mild dextroscoliosis. Impression: Continued nonacute chest with chronic features.
[2024-09-08] MEDS: ZITHROMAX IV*** 500 MG in Sodium Chloride 0.9% 250 ML 250 ML IV SCH (09:07)
[2024-09-08] MEDS: ENOXAPARIN SODIUM SQ SCH (09:08)
[2024-09-08] MEDS: Vitamin C 500 MG PO SCH (09:09)
[2024-09-08] MEDS: Acidophilus TABLET PO SCH (09:09)
[2024-09-08] MEDS: Protonix 40MG Tablet PO SCH (09:09)
[2024-09-08] MEDS: NORVASC 5 MG PO SCH (09:09)
[2024-09-08] MEDS: Mucinex 600MG ER Tabs PO SCH (09:09)
[2024-09-08] MEDS: VITAMIN D PO SCH (09:09)
[2024-09-08] MEDS: Miralax Powder 17GM PACKET PO SCH (09:10)
[2024-09-08] MEDS ORDERED: NON-FORMULARY ITEM (L.Acidoph,Paracasei, B.Lactis [Probiotic] 1 EACH Capsule) PO SCH (10:00)
[2024-09-08] MEDS ORDERED: NON-FORMULARY ITEM (Ascorbic Acid [Vitamin C] 1,000 MG Tablet) PO SCH (10:00)
[2024-09-08] MEDS ORDERED: CALCIUM CITRATE 200 MG PO SCH (10:00)
--- NOTE | 2024-09-08 10:38 | PCM.DS ---
Discharge Summary Date of Admission: 09/08/24 00:33 Date of Discharge: 09/08/24 Admitting Physician: MATTHEW ROBERT MD Primary Care Provider: FRANTZ SPENCER Allergies Allergies No Known Drug Allergies Allergy (Verified 09/07/24 20:28) Hospital Summary - Hospital Course Hospital Course: 09/08/24 is a 89 year old female with a history of chest pain (recently evaluated on 08/21/24 at [facility] for a rule-out NE; follows with Dr. Paulina curry), HTN, arthritis, and chronic O2 use of 2LNC at . She presented to the ED on 09/07/24 with fever (101 F) and chest discomfort. The patient denies hemoptysis, diarrhea, or dysuria. In the ED the patient was noted to have right sided infiltrate concerning for pneumonia and antibiotics were initiated. Trop x3 negative. She had some CP with walking today. She will need to f/u with Dr. Whitney- cardiology for OP f/u and further testing. She was admitted for pneumonia but CXR does not show this, will stop antibiotics. Blood cultures and sputum culture pending will continue to follow OP. Pt wants to d/c today as she needs to take care of her she explains. She denies any further concerns at this time. - Vitals & Intake/Output Vital Signs: Vital Signs Temperature 98.3 F 09/08/24 07:42 Pulse Rate 71 09/08/24 07:42 Respiratory Rate 20 09/08/24 07:42 Blood Pressure 180/74 09/08/24 07:42 O2 Sat by Pulse Oximetry 93 L 09/08/24 07:42 Intake & Output: Intake & Output 09/05/24 09/06/24 09/07/24 09/08/24 11:59 11:59 11:59 11:59 Intake Total 228 Balance 228 Weight 52.8 kg - Lab Result Diagrams: 09/08/24 04:35 09/08/24 04:35 Lab Results-Last 24 Hrs: Lab Results-Last 24 Hours 09/07/24 09/07/24 09/07/24 Range/Units 20:34 20:34 20:34 WBC 15.7 H (3.98-10.04) x10^3/uL RBC 4.35 (3.93-5.22) x10^6/uL Hgb 12.8 (11.2-15.7) g/dL Hct 39.5 (34.1-44.9) % MCV 90.8 (79.4-94.8) fL MCH 29.4 (25.6-32.2) pg MCHC 32.4 (32.2-35.5) g/dL RDW 13.2 (11.7-14.4) % Plt Count 391 H (182-369) x10^3/uL MPV 10.4 (9.4-12.3) fL Gran % 82.7 H (34.0-71.1) % Immature Gran % (Auto) 0.3 (0.001-0.429) % Nucleat RBC Rel Count 0.0 (0.00-0.2) % Eos # (Auto) 0.32 (0.04-0.36) x10^3/uL Immature Gran # (Auto) 0.05 H (0.001-0.031) x10^3u/L Absolute Lymphs (auto) 1.47 (1.18-3.74) x10^3/uL Absolute Monos (auto) 0.80 (0.24-0.86) x10^3/uL Absolute Nucleated RBC 0.00 (0.00-0.012) x10^3u/L Lymphocytes % 9.3 L (19.3-51.7) % Monocytes % 5.1 (4.7-12.5) % Eosinophils % 2.0 (0.7-5.8) % Basophils % 0.6 (0.1-1.2) % Absolute Granulocytes 12.99 H (1.56-6.13) x10^3/uL Basophils # 0.10 H (0.01-0.08) x10^3/uL Sodium 140 (135-145) mmol/L Potassium 4.2 (3.5-5.1) mmol/L Chloride 100 (98-107) mmol/L Carbon Dioxide 31 H (22-30) mmol/L Anion Gap 13.9 (5-15) MEQ/L BUN 25 H (7-17) mg/dL Creatinine 0.86 (0.52-1.04) mg/dL Estimated GFR 64.5 ML/MIN Glucose 203 H (74-106) mg/dL Hemoglobin A1c (4.5-6.0) % Calcium 10.0 (8.4-10.2) mg/dL Magnesium 2.4 H (1.6-2.3) mg/dL Total Bilirubin 0.50 (0.2-1.3) mg/dL AST 34 (14-36) U/L ALT 22 (0-35) U/L Alkaline Phosphatase 109 (38-126) U/L Creatine Kinase 51 (30-135) U/L Troponin I < 0.012 (0.000-0.033) ng/mL NT-Pro-B Natriuret Pep 527 (<300) pg/mL Serum Total Protein 7.6 (6.3-8.2) g/dL Albumin 4.6 (3.5-5.0) g/dL Urine Color (Yellow) Urine Appearance (Clear) Urine pH (4.6-8.0) Ur Specific [place] (1.005-1.030) Urine Protein (Negative) Urine Glucose (UA) (Negative) mg/dL Urine Ketones (Negative) Urine Blood (Negative) Urine Nitrite (Negative) Urine Bilirubin (Negative) Urine Urobilinogen (0.2) mg/dL Ur Leukocyte Esterase (Negative) U Hyaline Cast (Auto) (0-2) /LPF Urine Microscopic RBC (0-5) /HPF Urine Microscopic WBC (0-5) /HPF Ur Epithelial Cells (None Seen) /HPF Urine Bacteria (None Seen) /HPF Waxy Casts (Auto) (None Seen) /LPF Urine Culture Reflexed (NO) Monoscreen (NEGATIVE) Influenza Type A Ag (NEGATIVE) Influenza Type B Ag (NEGATIVE) RSV (PCR) (NEGATIVE) SARS-CoV-2 (PCR) (NEGATIVE) Group A Strep Antibody (NEGATIVE) 09/07/24 09/07/24 09/07/24 Range/Units 20:34 21:00 21:00 WBC (3.98-10.04) x10^3/uL RBC (3.93-5.22) x10^6/uL Hgb (11.2-15.7) g/dL Hct (34.1-44.9) % MCV (79.4-94.8) fL MCH (25.6-32.2) pg MCHC (32.2-35.5) g/dL RDW (11.7-14.4) % Plt Count (182-369) x10^3/uL MPV (9.4-12.3) fL Gran % (34.0-71.1) % Immature Gran % (Auto) (0.001-0.429) % Nucleat RBC Rel Count (0.00-0.2) % Eos # (Auto) (0.04-0.36) x10^3/uL Immature Gran # (Auto) (0.001-0.031) x10^3u/L Absolute Lymphs (auto) (1.18-3.74) x10^3/uL Absolute Monos (auto) (0.24-0.86) x10^3/uL Absolute Nucleated RBC (0.00-0.012) x10^3u/L Lymphocytes % (19.3-51.7) % Monocytes % (4.7-12.5) % Eosinophils % (0.7-5.8) % Basophils % (0.1-1.2) % Absolute Granulocytes (1.56-6.13) x10^3/uL Basophils # (0.01-0.08) x10^3/uL Sodium (135-145) mmol/L Potassium (3.5-5.1) mmol/L Chloride (98-107) mmol/L Carbon Dioxide (22-30) mmol/L Anion Gap (5-15) MEQ/L BUN (7-17) mg/dL Creatinine (0.52-1.04) mg/dL Estimated GFR ML/MIN Glucose (74-106) mg/dL Hemoglobin A1c (4.5-6.0) % Calcium (8.4-10.2) mg/dL Magnesium (1.6-2.3) mg/dL Total Bilirubin (0.2-1.3) mg/dL AST (14-36) U/L ALT (0-35) U/L Alkaline Phosphatase (38-126) U/L Creatine Kinase (30-135) U/L Troponin I (0.000-0.033) ng/mL NT-Pro-B Natriuret Pep (<300) pg/mL Serum Total Protein (6.3-8.2) g/dL Albumin (3.5-5.0) g/dL Urine Color Yellow (Yellow) Urine Appearance Clear (Clear) Urine pH 7.0 (4.6-8.0) Ur Specific [place] 1.015 (1.005-1.030) Urine Protein Negative (Negative) Urine Glucose (UA) 250 A (Negative) mg/dL Urine Ketones Negative (Negative) Urine Blood Negative (Negative) Urine Nitrite Negative (Negative) Urine Bilirubin Negative (Negative) Urine Urobilinogen 0.2 (0.2) mg/dL Ur Leukocyte Esterase Negative (Negative) U Hyaline Cast (Auto) NONE SEEN (0-2) /LPF Urine Microscopic RBC 0-2 (0-5) /HPF Urine Microscopic WBC 0-2 (0-5) /HPF Ur Epithelial Cells None Seen (None Seen) /HPF Urine Bacteria None Seen (None Seen) /HPF Waxy Casts (Auto) NO (None Seen) /LPF Urine Culture Reflexed NO (NO) Monoscreen NEGATIVE (NEGATIVE) Influenza Type A Ag (NEGATIVE) Influenza Type B Ag (NEGATIVE) RSV (PCR) (NEGATIVE) SARS-CoV-2 (PCR) (NEGATIVE) Group A Strep Antibody NOT DETECTED (NEGATIVE) 09/07/24 09/08/24 09/08/24 Range/Units 21:00 00:15 04:35 WBC (3.98-10.04) x10^3/uL RBC (3.93-5.22) x10^6/uL Hgb (11.2-15.7) g/dL Hct (34.1-44.9) % MCV (79.4-94.8) fL MCH (25.6-32.2) pg MCHC (32.2-35.5) g/dL RDW (11.7-14.4) % Plt Count (182-369) x10^3/uL MPV (9.4-12.3) fL Gran % (34.0-71.1) % Immature Gran % (Auto) (0.001-0.429) % Nucleat RBC Rel Count (0.00-0.2) % Eos # (Auto) (0.04-0.36) x10^3/uL Immature Gran # (Auto) (0.001-0.031) x10^3u/L Absolute Lymphs (auto) (1.18-3.74) x10^3/uL Absolute Monos (auto) (0.24-0.86) x10^3/uL Absolute Nucleated RBC (0.00-0.012) x10^3u/L Lymphocytes % (19.3-51.7) % Monocytes % (4.7-12.5) % Eosinophils % (0.7-5.8) % Basophils % (0.1-1.2) % Absolute Granulocytes (1.56-6.13) x10^3/uL Basophils # (0.01-0.08) x10^3/uL Sodium (135-145) mmol/L Potassium (3.5-5.1) mmol/L Chloride (98-107) mmol/L Carbon Dioxide (22-30) mmol/L Anion Gap (5-15) MEQ/L BUN (7-17) mg/dL Creatinine (0.52-1.04) mg/dL Estimated GFR ML/MIN Glucose (74-106) mg/dL Hemoglobin A1c (4.5-6.0) % Calcium (8.4-10.2) mg/dL Magnesium (1.6-2.3) mg/dL Total Bilirubin (0.2-1.3) mg/dL AST (14-36) U/L ALT (0-35) U/L Alkaline Phosphatase (38-126) U/L Creatine Kinase (30-135) U/L Troponin I < 0.012 < 0.012 (0.000-0.033) ng/mL NT-Pro-B Natriuret Pep (<300) pg/mL Serum Total Protein (6.3-8.2) g/dL Albumin (3.5-5.0) g/dL Urine Color (Yellow) Urine Appearance (Clear) Urine pH (4.6-8.0) Ur Specific [place] (1.005-1.030) Urine Protein (Negative) Urine Glucose (UA) (Negative) mg/dL Urine Ketones (Negative) Urine Blood (Negative) Urine Nitrite (Negative) Urine Bilirubin (Negative) Urine Urobilinogen (0.2) mg/dL Ur Leukocyte Esterase (Negative) U Hyaline Cast (Auto) (0-2) /LPF Urine Microscopic RBC (0-5) /HPF Urine Microscopic WBC (0-5) /HPF Ur Epithelial Cells (None Seen) /HPF Urine Bacteria (None Seen) /HPF Waxy Casts (Auto) (None Seen) /LPF Urine Culture Reflexed (NO) Monoscreen (NEGATIVE) Influenza Type A Ag NEGATIVE (NEGATIVE) Influenza Type B Ag NEGATIVE (NEGATIVE) RSV (PCR) NEGATIVE (NEGATIVE) SARS-CoV-2 (PCR) NEGATIVE (NEGATIVE) Group A Strep Antibody (NEGATIVE) 09/08/24 09/08/24 09/08/24 Range/Units 04:35 04:35 04:45 WBC 12.1 H (3.98-10.04) x10^3/uL RBC 3.93 (3.93-5.22) x10^6/uL Hgb 11.2 (11.2-15.7) g/dL Hct 35.6 (34.1-44.9) % MCV 90.6 (79.4-94.8) fL MCH 28.5 (25.6-32.2) pg MCHC 31.5 L (32.2-35.5) g/dL RDW 13.3 (11.7-14.4) % Plt Count 305 (182-369) x10^3/uL MPV 10.5 (9.4-12.3) fL Gran % 78.3 H (34.0-71.1) % Immature Gran % (Auto) 0.3 (0.001-0.429) % Nucleat RBC Rel Count 0.0 (0.00-0.2) % Eos # (Auto) 0.20 (0.04-0.36) x10^3/uL Immature Gran # (Auto) 0.04 H (0.001-0.031) x10^3u/L Absolute Lymphs (auto) 1.30 (1.18-3.74) x10^3/uL Absolute Monos (auto) 1.01 H (0.24-0.86) x10^3/uL Absolute Nucleated RBC 0.00 (0.00-0.012) x10^3u/L Lymphocytes % 10.8 L (19.3-51.7) % Monocytes % 8.4 (4.7-12.5) % Eosinophils % 1.7 (0.7-5.8) % Basophils % 0.5 (0.1-1.2) % Absolute Granulocytes 9.48 H (1.56-6.13) x10^3/uL Basophils # 0.06 (0.01-0.08) x10^3/uL Sodium 140 (135-145) mmol/L Potassium 4.0 (3.5-5.1) mmol/L Chloride 104 (98-107) mmol/L Carbon Dioxide 28 (22-30) mmol/L Anion Gap 11.3 (5-15) MEQ/L BUN 22 H (7-17) mg/dL Creatinine 0.61 (0.52-1.04) mg/dL Estimated GFR 85.4 ML/MIN Glucose 114 H (74-106) mg/dL Hemoglobin A1c (4.5-6.0) % Calcium 9.0 (8.4-10.2) mg/dL Magnesium 2.5 H (1.6-2.3) mg/dL Total Bilirubin 0.60 (0.2-1.3) mg/dL AST 24 (14-36) U/L ALT 15 (0-35) U/L Alkaline Phosphatase 74 (38-126) U/L Creatine Kinase (30-135) U/L Troponin I (0.000-0.033) ng/mL NT-Pro-B Natriuret Pep 864 (<300) pg/mL Serum Total Protein 5.6 L (6.3-8.2) g/dL Albumin 3.2 L (3.5-5.0) g/dL Urine Color (Yellow) Urine Appearance (Clear) Urine pH (4.6-8.0) Ur Specific [place] (1.005-1.030) Urine Protein (Negative) Urine Glucose (UA) (Negative) mg/dL Urine Ketones (Negative) Urine Blood (Negative) Urine Nitrite (Negative) Urine Bilirubin (Negative) Urine Urobilinogen (0.2) mg/dL Ur Leukocyte Esterase (Negative) U Hyaline Cast (Auto) (0-2) /LPF Urine Microscopic RBC (0-5) /HPF Urine Microscopic WBC (0-5) /HPF Ur Epithelial Cells (None Seen) /HPF Urine Bacteria (None Seen) /HPF Waxy Casts (Auto) (None Seen) /LPF Urine Culture Reflexed (NO) Monoscreen (NEGATIVE) Influenza Type A Ag (NEGATIVE) Influenza Type B Ag (NEGATIVE) RSV (PCR) (NEGATIVE) SARS-CoV-2 (PCR) (NEGATIVE) Group A Strep Antibody (NEGATIVE) 09/08/24 Range/Units 04:45 WBC (3.98-10.04) x10^3/uL RBC (3.93-5.22) x10^6/uL Hgb (11.2-15.7) g/dL Hct (34.1-44.9) % MCV (79.4-94.8) fL MCH (25.6-32.2) pg MCHC (32.2-35.5) g/dL RDW (11.7-14.4) % Plt Count (182-369) x10^3/uL MPV (9.4-12.3) fL Gran % (34.0-71.1) % Immature Gran % (Auto) (0.001-0.429) % Nucleat RBC Rel Count (0.00-0.2) % Eos # (Auto) (0.04-0.36) x10^3/uL Immature Gran # (Auto) (0.001-0.031) x10^3u/L Absolute Lymphs (auto) (1.18-3.74) x10^3/uL Absolute Monos (auto) (0.24-0.86) x10^3/uL Absolute Nucleated RBC (0.00-0.012) x10^3u/L Lymphocytes % (19.3-51.7) % Monocytes % (4.7-12.5) % Eosinophils % (0.7-5.8) % Basophils % (0.1-1.2) % Absolute Granulocytes (1.56-6.13) x10^3/uL Basophils # (0.01-0.08) x10^3/uL Sodium (135-145) mmol/L Potassium (3.5-5.1) mmol/L Chloride (98-107) mmol/L Carbon Dioxide (22-30) mmol/L Anion Gap (5-15) MEQ/L BUN (7-17) mg/dL Creatinine (0.52-1.04) mg/dL Estimated GFR ML/MIN Glucose (74-106) mg/dL Hemoglobin A1c 5.62 (4.5-6.0) % Calcium (8.4-10.2) mg/dL Magnesium (1.6-2.3) mg/dL Total Bilirubin (0.2-1.3) mg/dL AST (14-36) U/L ALT (0-35) U/L Alkaline Phosphatase (38-126) U/L Creatine Kinase (30-135) U/L Troponin I (0.000-0.033) ng/mL NT-Pro-B Natriuret Pep (<300) pg/mL Serum Total Protein (6.3-8.2) g/dL Albumin (3.5-5.0) g/dL Urine Color (Yellow) Urine Appearance (Clear) Urine pH (4.6-8.0) Ur Specific [place] (1.005-1.030) Urine Protein (Negative) Urine Glucose (UA) (Negative) mg/dL Urine Ketones (Negative) Urine Blood (Negative) Urine Nitrite (Negative) Urine Bilirubin (Negative) Urine Urobilinogen (0.2) mg/dL Ur Leukocyte Esterase (Negative) U Hyaline Cast (Auto) (0-2) /LPF Urine Microscopic RBC (0-5) /HPF Urine Microscopic WBC (0-5) /HPF Ur Epithelial Cells (None Seen) /HPF Urine Bacteria (None Seen) /HPF Waxy Casts (Auto) (None Seen) /LPF Urine Culture Reflexed (NO) Monoscreen (NEGATIVE) Influenza Type A Ag (NEGATIVE) Influenza Type B Ag (NEGATIVE) RSV (PCR) (NEGATIVE) SARS-CoV-2 (PCR) (NEGATIVE) Group A Strep Antibody (NEGATIVE) - Radiology Exams Ordered Rad Exams-Entire Visit: Radiology Procedures Category Date Time Status CHEST 1 VIEW (PORTABLE) Stat Exams 09/07/24 20:31 Completed - Procedures and Test Procedures and Tests throughout Hospitalization: Therapy Orders & Screens 09/08/24 00:37 EKG REPEAT IN AM Comment: Respiratory Therapy Consult ONCE Comment: Reason For Exam: 09/08/24 01:23 PT Eval & Treat ( Order) ONCE Reason for Eval:: weakness Diagnosis: pneumonia 09/08/24 01:24 ST Eval & Treat ( Order) ROUTINE Comment: Physician Instructions: Reason For Exam: Evaluate: Yes Treat: Yes Reason for Eval: possible aspiration pneumonia. rule out occult dysphagia. Diagnosis: pneumonia 09/08/24 07:30 ST Screen per Nursing Assess ONCE Comment: Protocol Order Physician Instructions: Greater than [address] Admission Screening Reason For Exam: Triggered on Admission Diagnosis: pneumonia CVA/Dysphagia/Aphasia: No Cognitive Deficits: No Dehydration/Nutrition Deficit: No Reflux: No Oral-Motor Difficulties: No Pneumonia: Yes Shelter Resident: No Total Points: 5 Discharge Exam General Appearance: no apparent distress, alert Neurologic Exam: alert, oriented x 3, cooperative, normal mood/affect, nml cere bellar function, sensation nml, No motor deficits Eye Exam: PERRL, EOMI, eyes nml inspection Ears, Nose, Throat Exam: normal ENT inspection, pharynx normal, moist mucous membranes Neck Exam: normal inspection, non-tender, supple, full range of motion Respiratory Exam: normal breath sounds, lungs clear, No respiratory distress Cardiovascular Exam: regular rate/rhythm, normal heart sounds Gastrointestinal/Abdomen Exam: soft, No tenderness, No mass Pelvic Exam: deferred Rectal Exam: deferred Back Exam: normal inspection, normal range of motion, No CVA tenderness, No vertebral tenderness Extremity Exam: normal inspection, normal range of motion Skin Exam: normal color, warm, dry Final Diagnosis/Problem List - Final Discharge Diagnosis/Problem (1) Chest pain Current Visit: Yes Status: Acute Assessment & Plan: - Trop x3 negative - Tele - EKG- reviewed - F/U with Dr. Whitney OP for further evaluation Code(s): R07.9 - CHEST PAIN, UNSPECIFIED (2) Fever Current Visit: Yes Status: Acute Assessment & Plan: - Resolved - Tylenol PRN - Flu, COVID, RSV negative Code(s): R50.9 - FEVER, UNSPECIFIED (3) Leukocytosis Current Visit: No Status: Acute Assessment & Plan: - WBC 12.1- improved from yesterday 15.7 - BC x2 and sputum culture pending- will follow OP - UA neagtive - CXR negative Code(s): D72.829 - ELEVATED WHITE BLOOD CELL COUNT, UNSPECIFIED (4) Shortness of breath Current Visit: No Status: Acute Assessment & Plan: - On baseline 2lNC at night 96% - Per case management pt has been approved to also use 2lNC during the day if needed. - CXR reviewed- negative for pneumonia Code(s): R06.02 - SHORTNESS OF BREATH (5) Abnormal EKG Current Visit: Yes Status: Chronic Assessment & Plan: - EKG shows ST elevation, not changed since last EKG when compared. - Pt has a hx of left ventricular hypertrophy with EF of 40% per old echo reviewed - F/U with Dr. Whitney - cardiology Code(s): R94.31 - ABNORMAL ELECTROCARDIOGRAM [ECG] [EKG] (6) Hypertension Current Visit: No Status: Chronic Assessment & Plan: - Stable - Continue home meds Code(s): I10 - ESSENTIAL (PRIMARY) HYPERTENSION (7) Community acquired pneumonia Current Visit: Yes Status: Resolved Assessment & Plan: - ruled out - CXR negative - CBC, CMP reviewed Code(s): J18.9 - PNEUMONIA, UNSPECIFIED ORGANISM - Discharge Discharge Date: 09/08/24 Disposition: Home, Self-Care Condition: Fair Prescriptions: Continue Calcium Citrate 1 tab PO DAILY Cholecalciferol (Vitamin D3) [Vitamin D] 1 cap PO DAILY Ascorbic Acid [Vitamin C] 1 cap PO DAILY L.acidoph,Paracasei, B.lactis [Probiotic] 1 cap PO DAILY Melatonin/Pyridoxine [Melatonin 5 mg Tablet] 3 mg PO HS Prednisolone Acetate/Pf [Prednisolone Acet 1% Eye Drop] 1 drop OP . EVERY OTHER DAY Amlodipine Besylate 5 mg [Norvasc 5 mg] 5 mg PO DAILY Gabapentin 100 mg PO TID Meloxicam 7.5 mg PO DAILY PRN PRN PRN Reason: Pain ALPRAZolam [Alprazolam] 0.5 mg PO HS Polyethylene Glycol 3350 [Miralax] 0.5 packet PO DAILY Gabapentin 200 mg PO HS Follow up with: TRAM MAGUIRE [ACTIVE STAFF] - 09/21/24 1:00 pm FRANTZ SPENCER MD [Primary Care Provider] - 09/15/24 11:00 am CHARANJIT MARTINEZ PA [NON-STAFF PHY W/O PRIVILEGES] - 09/22/24 9:30 am ([facility])
[2024-09-08 12:44] VITALS: PULSE 74; RESP 16; O2SAT 94
[2024-09-08 12:51] VITALS: BP 187/80; TEMP 97.9
[2024-09-08] MEDS ORDERED: xanAX 0.5 MG PO SCH (22:00)
[2024-09-08] MEDS ORDERED: ROCEPHIN 1 GM / 100 ML NaCl 1 GM/100 ML IVPB IV SCH (22:00)
[2024-09-08] MEDS ORDERED: Neurontin PO SCH (22:00)
[2024-09-08] MEDS ORDERED: NON-FORMULARY ITEM (Melatonin/Pyridoxine [Melatonin 5 Mg Tablet] 1 EACH Tablet) PO SCH (22:00)
[2024-09-08] MEDS ORDERED: MELATONIN PO SCH (22:00)
[2024-09-09] MEDS ORDERED: PRED-FORTE 1% OPHTHALMIC OP SCH (22:00)
== END 2024-09-08 16:36 | disposition home or self-care (01) ==
LOC: ED 20:23 → MED SURG 09-08 00:33
PROVIDERS: ADMIT Internal Medicine; ATTEND Internal Medicine
DX: R07.9 Chest pain, unspecified (principal); R50.9 Fever, unspecified; D72.829 Elevated white blood cell count, unspecified; R06.02 Shortness of breath; R94.31 Abnormal electrocardiogram [ECG] [EKG]; I10 Essential (primary) hypertension; J18.9 Pneumonia, unspecified organism; R09.02 Hypoxemia; Z79.899 Other long term (current) drug therapy
CPT/HCPCS: 0241U; 36415; 71045; 80053; 81001; 82550; 83036; 83735; 83880; 84484; 85025; 86308; 87040; 87651; 93005; 93268; 93306; 94760; 99285; J0456; J0696; J1650; Q3014; A9270-GY; G0378